=== PATIENT | male | born 1950 | race American Indian/Alaskan Native ===

== ENCOUNTER 2018-12-02 11:21 | Outpatient (CLI) | payer MEDICARE | END 2018-12-02 11:22 | disposition home or self-care (01) | LOC: RAD 11:21 ==

== ENCOUNTER 2018-12-15 07:27 | Outpatient (CLI) | payer MEDICARE | END 2018-12-15 07:28 | disposition home or self-care (01) | LOC: RAD 07:27 ==

== ENCOUNTER 2018-12-22 12:12 | Inpatient (IN) | payer MEDICARE, OTHER ==
[2018-12-22 12:55] LABS: BASO # 0.02 K/mm3 (0.0-2.0); BASO % 0.1 % (0.0-3.0); EOS # 0.1 (0.0-0.7); EOS % 0.7 % (1.5-5.0); HEMOGLOBIN 11.4 g/dL (14.0-18.0); LYMPH # 1.9 (1.2-3.4); LYMPH % 11.1 % (22.0-35.0); MEAN CELL VOLUME 85.6 fl (80.0-105.0); MEAN CORPUSCULAR HEMOGLOBIN 28.9 pg (25.0-35.0); MEAN CORPUSCULAR HGB CONC 33.7 g/dl (31.0-37.0); MEAN PLATELET VOLUME 9.1 fl (7.0-11.0); MONO # 1.8 (0.1-0.6); MONO % 10.8 % (1.0-6.0); RBC 3.95 10^6/uL (3.5-6.1); RED CELL DISTRIBUTION WIDTH 12.5 % (11.5-14.5)
[2018-12-22 13:06] LABS: BLOOD UREA NITROGEN 17 mg/dL (7-21); CALCIUM 9.9 mg/dL (8.4-10.5); GFR NON-AFRICAN AMERICAN 51
[2018-12-22 13:08] LABS: INR 1.27; PARTIAL THROMBOPLASTIN TIME 36.2 Seconds (26.9-38.3); PROTHROMBIN TIME 14.3 SECONDS (9.4-12.5)
[2018-12-22] MEDS ORDERED: Iodixanol 320 MG/ML 200 ML BOTTLE IV ONE (13:22)
[2018-12-22] MEDS ORDERED: Lidocaine PF 2% (5 ml) Inj (For Cardiac Arrhy) ONE (13:22)
[2018-12-22] MEDS ORDERED: Nitroglycerin 50mg in D5W 50 MG/250 ML BOTTLE IV ONE (13:29)
[2018-12-22] MEDS ORDERED: Midazolam 2 MG/2 ML VIAL ONE ×2 (14:15→14:35)
[2018-12-22] MEDS ORDERED: Labetalol 5mg/ml (4ml) ONE (15:00)
[2018-12-22] MEDS ORDERED: Iodixanol 320 MG/ML 100 ML BOTTLE IV ONE ×2 (15:32→15:45)
[2018-12-22] MEDS ORDERED: Oxycodone/Acetaminophen 5/325 mg Tab PO PRN (16:52)
[2018-12-22] MEDS: SITAGLIPTIN PHOS PO SCH (17:32)
[2018-12-22] MEDS: METFORMIN HCL PO SCH (17:32)
[2018-12-22] MEDS: Sodium Chloride 0.45% 1,000 ML IV SCH (18:11)
--- NOTE | 2018-12-22 18:44 | VASCULAR ---
Date of service: 12/22/2018 PROCEDURE: 1. Abdominal aortogram and bilateral lower extremity runoff with left selective views 2. Left popliteal artery drug-eluting balloon angioplasty 3. Left proximal to mid anterior tibial artery angioplasty and drug-eluting stent placement 4. Left tibioperoneal and proximal peroneal artery angioplasty and drug-eluting stent placement HISTORY: Severe peripheral vascular disease. Diabetes. Gangrene left 5th toe. PHYSICIAN(S): Jaskaran Adams M.D. TECHNIQUE: The relative risks and indications of the procedure were explained to the patient and consent obtained. The patient was hydrated prior to the procedure and the appropriate labs drawn. The patient was placed supine on the arteriogram table and the right groin prepped and draped in the usual sterile fashion. Conscious sedation and monitoring were provided throughout the procedure by a nurse. Under ultrasound guidance, the right common femoral artery was punctured with a micropuncture set. A 5 Mauritian sheath was placed. Through the sheath and over guidewire a 5 Mauritian flush catheter was placed in the abdominal aorta at the level of the renal arteries and a PA DSA abdominal and pelvic arteriogram performed. The catheter was pulled down the aortic bifurcation and bilateral oblique DSA pelvic arteriograms performed. Next overlapping bilateral lower extremity DSA arteriograms were obtained from the inguinal ligaments to the ankles. A 6 Mauritian 65 cm sheath was advanced over the bifurcation and placed in the mid left SFA. Heparin and nitroglycerin were given. The stenoses in the left popliteal artery and tibioperoneal trunk were crossed with a 5 Mauritian catheter and angled Glidewire. Exchange is made for 0.014 support wire. The left tibioperoneal trunk and proximal left peroneal artery were dilated with a 3.0 by 100 mm balloon. Eventually a 3.5 x 30 mm drug-eluting stent was placed in the left tibioperoneal trunk and peroneal artery origin. The catheter and guidewire were then directed across the severely diseased left anterior tibial artery. The occlusions in the mid left anterior tibial artery were crossed with various 0.018 and 0.035 guidewires. A 0.014 support wire was placed in the dorsalis pedis artery. The proximal to mid left anterior tibial artery was dilated with a 3.5 x 150 balloon. A focal 3.0 x 22 mm drug-eluting stent was placed in the left anterior tibial artery origin. Next a 6 mm x 120 mm drug-eluting balloon was used in the terminal left SFA and above knee popliteal arteries. No stent was required. Completion angiograms were obtained. Sheath was removed hemostasis obtained with a Perclose device. The patient tolerated the procedure FINDINGS: There are single renal arteries bilaterally which are widely patent and normal in appearance. The nephrograms are symmetric in appearance. The infrarenal abdominal aorta is widely patent without a radiographically significant stenosis. The aortic bifurcation is widely patent. The common and external iliac arteries are normal in appearance without a significant stenosis. The internal iliac arteries are patent bilaterally. Right lower extremity: The right common femoral artery is patent. The right profunda femoral artery is patent. The right superficial femoral artery is patent and continuous without a radiographically significant stenosis. The right popliteal artery is patent with mild smooth disease. There is severe right trifurcation and tibial occlusive disease. The right posterior tibial and peroneal arteries are occluded proximally. There is severe diffuse disease and atretic tearing right anterior tibial artery. Images of the right foot were not obtained Left lower extremity: Left common femoral artery is patent. The left profunda femoral artery is patent. The left superficial femoral artery is patent and continuous without a radiographically significant stenosis. There are eccentric calcified stenoses in the left popliteal artery above the knee. Once again there is severe left trifurcation and tibial occlusive disease. Diffuse disease and mid segment occlusions are noted in the left anterior tibial artery. The left posterior tibial artery occludes proximally. The left peroneal artery is a predominant supply to the foot with disease in the tibioperoneal trunk and proximal left peroneal artery. There is severe left pedal occlusive disease. The left dorsalis pedis artery occludes in the mid foot. The left plantar arch is occluded. There is a small collaterals present IMPRESSION: 1.Successful left popliteal artery drug-eluting balloon angioplasty 2. Successful proximal and mid left anterior tibial artery angioplasty and focal stent placement 3. Successful left tibioperoneal trunk and proximal left peroneal artery angioplasty and focal stent placement 4. Severe left pedal occlusive disease.
[2018-12-22] MEDS: Morphine 2 mg/ml ISec IVP PRN (22:09)
[2018-12-23 07:16] LABS: HEMOGLOBIN 10.1 g/dL (14.0-18.0); MEAN CORPUSCULAR HEMOGLOBIN 28.1 pg (25.0-35.0); MEAN CORPUSCULAR HGB CONC 33.1 g/dl (31.0-37.0); MEAN PLATELET VOLUME 9.3 fl (7.0-11.0); RBC 3.59 10^6/uL (3.5-6.1); RED CELL DISTRIBUTION WIDTH 12.7 % (11.5-14.5); WHITE BLOOD COUNT 15.5 10^3/uL (4.5-11.0)
[2018-12-23 07:34] LABS: BLOOD UREA NITROGEN 16 mg/dL (7-21); CALCIUM 9.1 mg/dL (8.4-10.5); GFR NON-AFRICAN AMERICAN > 60
[2018-12-23] MEDS: Sodium Chloride 0.45% 1,000 ML IV SCH (09:12)
[2018-12-23] MEDS: Insulin Detemir 100 units/ml Vial (Levemir) SC SCH ×2 (09:16→21:46)
[2018-12-23] MEDS: METFORMIN HCL PO SCH (09:41)
[2018-12-23] MEDS: SITAGLIPTIN PHOS PO SCH (09:41)
[2018-12-23] MEDS: Morphine 2 mg/ml ISec IVP PRN ×2 (09:46→21:46)
--- NOTE | 2018-12-23 10:55 | CP.PCM.CON ---
<Evelyn Arenas - Last Filed: 12/23/18 11:08> History of Present Illness - History of Present Illness History of Present Illness: Podiatry Consult Note: Dr. Colmenares 68 year old male patient, with PMHx of DMII and HTN, seen and evaluated at bedside for L necrotic 5th digit. 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 He states that over the past week the toe started to become black, painful, and have malodor. Denies nausea/vomiting/fever/shortness of breath/chest pain. PMHx: as above PSHx: R hallux amp ALL: NKDA Review of Systems - Constitutional Constitutional: As Per HPI Past Patient History - Past Medical History & Family History Past Medical History?: Yes - Past Social History Smoking Status: Never Smoked - CARDIAC Hx Pacemaker: No - PULMONARY Hx Respiratory Disorders: No Hx Asthma: No Hx Bronchitis: No Hx Chronic Obstructive Pulmonary Disease (COPD): No Hx Emphysema: No Hx Lung Cancer: No Hx Pneumonia: No Hx Pulmonary Edema: No Hx Pulmonary Embolism: No Hx Respiratory Aspiration: No Hx Respiratory Tract Infection: No Hx Sleep Apnea: No Hx Tuberculosis: No - NEUROLOGICAL Hx Paralysis: No - HEENT Hx HEENT Problems: No Hx Blind: No Hx Cataracts: No Hx Deafness: No Hx Difficulty Chewing: No Hx Epistaxis: No Hx Glaucoma: No Hx Macular Degeneration: No - RENAL Hx Chronic Kidney Disease: No Hx Kidney Stones: No Hx Neurogenic Bladder: No Hx Pyelonephritis: No Hx Renal (Kidney) Cancer: No Hx Renal Failure: No - ENDOCRINE/METABOLIC Hx Endocrine Disorders: No Hx Adrenal Cancer: No Hx Diabetes Insipidus: No Hx Diabetes Mellitus Type 2: No Hx Hyperthyroidism: No Hx Hypothyroidism: No Hx Systemic Lupus Erythematosus: No - HEMATOLOGICAL/ONCOLOGICAL Hx Blood Transfusions: No - INTEGUMENTARY Hx Dermatological Problems: No Hx Basil Cell: No Hx Foy: No Hx Cellulitis: No Hx Eczema: No Hx Melanoma: No Hx Psoriasis: No Hx Squamous Cell: No - MUSCULOSKELETAL/RHEUMATOLOGICAL Hx Musculoskeletal Disorders: No - GASTROINTESTINAL Hx Gastrointestinal Disorders: No Hx Bowel Surgery: No Hx Clostridium Difficile: No Hx Colitis: No Hx Colostomy: No Hx Crohn's Disease: No Hx Diverticulitis: No Hx Esophageal Varices: No Hx Fatty Liver Disease: No Hx Gall Bladder Disease: No Hx Gastritis: No Hx Gastroesophageal Reflux: No Hx Hemorrhoids: No Hx Ileostomy: No Hx Irritable Bowel: No Hx Liver Failure: No Hx Pancreatitis: No HX Swallowing Problems: No Hx Ulcer: No - GENITOURINARY/GYNECOLOGICAL Hx Genitourinary Disorders: No Hx Bladder Cancer: No Hx Bladder Stone: No Hx Hematuria: No Hx Incontinence: No Hx Prostate Cancer: No Hx Prostate Problems: No Hx Reproductive Disorders: No Hx Sexually Transmitted Disorders: No Hx Urinary Tract Infection: No - PSYCHIATRIC Hx Emotional Abuse: No Hx Physical Abuse: No Hx Substance Use: No - SURGICAL HISTORY Hx Surgeries: Yes - ANESTHESIA Hx Anesthesia Reactions: No Hx Malignant Hyperthermia: No Meds Allergies/Adverse Reactions: Allergies Allergy/AdvReac Type Severity Reaction Status Date / Time No Known Allergies Allergy Verified 12/21/18 08:22 - Medications Medications: Current Medications Ibuprofen (Motrin Tab) 400 mg PO TID PRN PRN Reason: Pain, moderate (4-7) Insulin Detemir (Levemir) 40 unit SC Q12 [facility] Last Admin: 12/23/18 09:16 Dose: 40 units Losartan Potassium (Cozaar) 25 mg PO DAILY [facility] Last Admin: 12/23/18 09:12 Dose: 25 mg Morphine Sulfate (Morphine) 2 mg IVP Q4H PRN PRN Reason: Pain, moderate (4-7) Last Admin: 12/23/18 09:46 Dose: 2 mg Sitagliptin Phos/Metformin Hcl [ Janumet 50-1,000 Mg Tablet] 1 Ea (Home Med) 1 each PO BID [facility] Last Admin: 12/23/18 09:41 Dose: Not Given Ondansetron HCl (Zofran Inj) 4 mg IVP ONCE PRN PRN Reason: Nausea/Vomiting Oxycodone/Acetaminophen (Percocet 5/325 Mg Tab) 1 tab PO Q4H PRN PRN Reason: Pain, moderate (4-7) Stop: 12/25/18 16:53 Physical Exam - Constitutional Appears: Non-toxic, No Acute Distress - Head Exam Head Exam: ATRAUMATIC, NORMOCEPHALIC - Extremities Exam Additional comments: Vascular: DP/PT non-palpable, CFT > 3 seconds, TG warm to cool, mild edema appreciated to lateral aspect of R 5th digit Ortho: Tenderness with palpation of R 5th digit, L hallux amp Neuro: Gross and protective sensation diminished Derm: Necrotic R 5th digit with + malodor, + purulence in 4th interspace, + serous drainage. - Neurological Exam Neurological exam: Alert, Normal Gait, Oriented x3 - Psychiatric Exam Psychiatric exam: Normal Affect, Normal Mood Results - Vital Signs Recent Vital Signs: Last Vital Signs Temp 98.7 F 12/23/18 06:00 Pulse 99 H 12/23/18 09:12 Resp 20 12/23/18 06:00 BP 132/65 12/23/18 09:12 Pulse Ox 99 12/23/18 06:00 - Labs Result Diagrams: 12/23/18 07:00 12/23/18 07:00 Labs: Laboratory Results - last 24 hr 12/22/18 12/22/18 12/22/18 12:30 12:30 12:30 WBC 17.0 H RBC 3.95 Hgb 11.4 L Hct 33.8 L MCV 85.6 MCH 28.9 MCHC 33.7 RDW 12.5 Plt Count 338 MPV 9.1 Neut % (Auto) 77.3 H Lymph % (Auto) 11.1 L [place] % (Auto) 10.8 H Eos % (Auto) 0.7 L Baso % (Auto) 0.1 Lymph # (Auto) 1.9 [place] # (Auto) 1.8 H Eos # (Auto) 0.1 Baso # (Auto) 0.02 Absolute Neuts (auto) 13.10 H PT 14.3 H INR 1.27 APTT 36.2 Sodium 138 Potassium 3.8 Chloride 100 Carbon Dioxide 28 Anion Gap 14 BUN 17 Creatinine 1.4 Est GFR ( Amer) > 60 Est GFR (Non-Af Amer) 51 Random Glucose 134 H Calcium 9.9 12/23/18 12/23/18 07:00 07:00 WBC 15.5 H RBC 3.59 Hgb 10.1 L Hct 30.5 L MCV 85.0 MCH 28.1 MCHC 33.1 RDW 12.7 Plt Count 323 MPV 9.3 Neut % (Auto) Lymph % (Auto) [place] % (Auto) Eos % (Auto) Baso % (Auto) Lymph # (Auto) [place] # (Auto) Eos # (Auto) Baso # (Auto) Absolute Neuts (auto) PT INR APTT Sodium 135 Potassium 4.0 Chloride 97 L Carbon Dioxide 29 Anion Gap 13 BUN 16 Creatinine 1.2 Est GFR ( Amer) > 60 Est GFR (Non-Af Amer) > 60 Random Glucose 109 Calcium 9.1 Assessment & Plan - Assessment and Plan (Free Text) Assessment: 68 year old male patient, with PMHx of DMII and HTN, seen and evaluated at bedside for L necrotic 5th digit. Plan: Patient seen and evaluated with attending Dr. Colmenares Afebrile, WBC 15.5 L foot x-ray ordered; pending L MRI ordered; pending Patient will need surgical intervention at this time Plan for L 5th digit amputation Will continue to follow Thank you for the consult - Date & Time Date: 12/23/18 Time: 10:55 <Mary Colmenares - Last Filed: 12/26/18 19:36> Meds - Medications Medications: Current Medications Ceftaroline Fosamil 600 mg/ (Sodium Chloride) 100 mls @ 100 mls/hr IVPB Q12 [facility]; Protocol Stop: 12/29/18 10:01 Last Admin: 12/26/18 09:44 Dose: 100 mls/hr Ibuprofen (Motrin Tab) 400 mg PO TID PRN PRN Reason: Pain, moderate (4-7) Insulin Detemir (Levemir) 40 unit SC Q12 [facility] Last Admin: 12/26/18 09:45 Dose: 40 units Insulin Human Regular (Humulin R Low) 0 units SC ACHS [facility]; Protocol Last Admin: 12/26/18 17:47 Dose: 1 unit Losartan Potassium (Cozaar) 25 mg PO DAILY [facility] Last Admin: 12/26/18 09:44 Dose: 25 mg Ondansetron HCl (Zofran Inj) 4 mg IVP ONCE PRN PRN Reason: Nausea/Vomiting Polyethylene Glycol (Miralax) 17 gm PO BID [facility] Last Admin: 12/26/18 17:47 Dose: 17 gm Sitagliptin Phosphate (Januvia) 50 mg PO DAILY [facility] Last Admin: 12/26/18 09:43 Dose: 50 mg Results - Vital Signs Recent Vital Signs: Last Vital Signs Temp 98.0 F 12/26/18 18:00 Pulse 81 12/26/18 18:00 Resp 20 12/26/18 18:00 BP 125/64 12/26/18 18:00 Pulse Ox 99 12/26/18 18:00 - Labs Result Diagrams: 12/25/18 05:30 12/25/18 05:30 Labs: Laboratory Results - last 24 hr 12/25/18 12/25/18 12/26/18 05:30 21:17 07:45 POC Glucose (mg/dL) 174 H 129 H Hemoglobin A1c 7.6 H 12/26/18 12/26/18 11:36 16:41 POC Glucose (mg/dL) 250 H 179 H Hemoglobin A1c Attending/Attestation - Attestation I have personally seen and examined this patient.: Yes I have fully participated in the care of the patient.: Yes I have reviewed all pertinent clinical information: Yes
--- NOTE | 2018-12-23 11:25 | CP.PCM.PCO ---
Physician Communication Note - Physician Communication Note Physician Communication Note: OR Mon.
[2018-12-23] MEDS: Insulin Reg-LOW-Coverage SC SCH ×3 (12:29→21:42)
[2018-12-23] MEDS ORDERED: Ceftaroline 600 MG in Sodium Chloride 0.9% 100 ML IVPB STA (15:25)
--- NOTE | 2018-12-23 15:32 | CP.PCM.CON ---
<Kalyan Hoang - Last Filed: 12/23/18 15:27> History of Present Illness - History of Present Illness History of Present Illness: Kalyan Hoang D.O. PGY-3, Internal Medicine Resident, Infectious Disease Consultation Note 68 year old male with a PMH of HTN, IDDM with neuropathy, and PVD who presented originally for procedural intervention of his PVD, hospital course complicated by wet gangrene. Infectious disease consultation was requested for the aforementioned. Patient was seen and examined at bedside. Patient admits that he has not been taking good care of himself, particularly with his diet, but that he's ready to make a change now. Patient states that he began to get worried because his left foot had "that smell" and started looking black and he's had right big toe and partial left middle toe amputations before for infections. Patient states that at this time he has pulsating pain in the area. Denies fever, chills, nausea, vomiting, diarrhea, headache, or other complaints at this time. Review of Systems - Review of Systems All systems: reviewed and no additional remarkable complaints except (as per HPI) Past Patient History - Past Medical History & Family History Past Medical History?: Yes - Past Social History Smoking Status: Never Smoked - CARDIAC Hx Pacemaker: No - PULMONARY Hx Respiratory Disorders: No Hx Asthma: No Hx Bronchitis: No Hx Chronic Obstructive Pulmonary Disease (COPD): No Hx Emphysema: No Hx Lung Cancer: No Hx Pneumonia: No Hx Pulmonary Edema: No Hx Pulmonary Embolism: No Hx Respiratory Aspiration: No Hx Respiratory Tract Infection: No Hx Sleep Apnea: No Hx Tuberculosis: No - NEUROLOGICAL Hx Paralysis: No - HEENT Hx HEENT Problems: No Hx Blind: No Hx Cataracts: No Hx Deafness: No Hx Difficulty Chewing: No Hx Epistaxis: No Hx Glaucoma: No Hx Macular Degeneration: No - RENAL Hx Chronic Kidney Disease: No Hx Kidney Stones: No Hx Neurogenic Bladder: No Hx Pyelonephritis: No Hx Renal (Kidney) Cancer: No Hx Renal Failure: No - ENDOCRINE/METABOLIC Hx Endocrine Disorders: No Hx Adrenal Cancer: No Hx Diabetes Insipidus: No Hx Diabetes Mellitus Type 2: No Hx Hyperthyroidism: No Hx Hypothyroidism: No Hx Systemic Lupus Erythematosus: No - HEMATOLOGICAL/ONCOLOGICAL Hx Blood Transfusions: No - INTEGUMENTARY Hx Dermatological Problems: No Hx Basil Cell: No Hx Foy: No Hx Cellulitis: No Hx Eczema: No Hx Melanoma: No Hx Psoriasis: No Hx Squamous Cell: No - MUSCULOSKELETAL/RHEUMATOLOGICAL Hx Musculoskeletal Disorders: No - GASTROINTESTINAL Hx Gastrointestinal Disorders: No Hx Bowel Surgery: No Hx Clostridium Difficile: No Hx Colitis: No Hx Colostomy: No Hx Crohn's Disease: No Hx Diverticulitis: No Hx Esophageal Varices: No Hx Fatty Liver Disease: No Hx Gall Bladder Disease: No Hx Gastritis: No Hx Gastroesophageal Reflux: No Hx Hemorrhoids: No Hx Ileostomy: No Hx Irritable Bowel: No Hx Liver Failure: No Hx Pancreatitis: No HX Swallowing Problems: No Hx Ulcer: No - GENITOURINARY/GYNECOLOGICAL Hx Genitourinary Disorders: No Hx Bladder Cancer: No Hx Bladder Stone: No Hx Hematuria: No Hx Incontinence: No Hx Prostate Cancer: No Hx Prostate Problems: No Hx Reproductive Disorders: No Hx Sexually Transmitted Disorders: No Hx Urinary Tract Infection: No - PSYCHIATRIC Hx Emotional Abuse: No Hx Physical Abuse: No Hx Substance Use: No - SURGICAL HISTORY Hx Surgeries: Yes - ANESTHESIA Hx Anesthesia Reactions: No Hx Malignant Hyperthermia: No Meds Allergies/Adverse Reactions: Allergies Allergy/AdvReac Type Severity Reaction Status Date / Time No Known Allergies Allergy Verified 12/21/18 08:22 - Medications Medications: Current Medications Ceftaroline Fosamil 600 mg/ (Sodium Chloride) 100 mls @ 100 mls/hr IVPB [facility]; Protocol Stop: 12/23/18 16:24 Ceftaroline Fosamil 600 mg/ (Sodium Chloride) 100 mls @ 100 mls/hr IVPB Q12 [facility]; Protocol Stop: 12/29/18 10:01 Ibuprofen (Motrin Tab) 400 mg PO TID PRN PRN Reason: Pain, moderate (4-7) Insulin Detemir (Levemir) 40 unit SC Q12 [facility] Last Admin: 12/23/18 09:16 Dose: 40 units Insulin Human Regular (Humulin R Low) 0 units SC ACHS [facility]; Protocol Last Admin: 12/23/18 12:29 Dose: 1 unit Losartan Potassium (Cozaar) 25 mg PO DAILY [facility] Last Admin: 12/23/18 09:12 Dose: 25 mg Morphine Sulfate (Morphine) 2 mg IVP Q4H PRN PRN Reason: Pain, moderate (4-7) Last Admin: 12/23/18 09:46 Dose: 2 mg Ondansetron HCl (Zofran Inj) 4 mg IVP ONCE PRN PRN Reason: Nausea/Vomiting Oxycodone/Acetaminophen (Percocet 5/325 Mg Tab) 1 tab PO Q4H PRN PRN Reason: Pain, moderate (4-7) Stop: 12/25/18 16:53 Sitagliptin Phosphate (Januvia) 50 mg PO DAILY [facility] Physical Exam - Constitutional Appears: No Acute Distress - Head Exam Head Exam: ATRAUMATIC, NORMOCEPHALIC - Eye Exam Eye Exam: EOMI. absent: Scleral icterus - ENT Exam ENT Exam: Mucous Membranes Moist, Normal Oropharynx - Neck Exam Neck exam: Positive for: Normal Inspection - Respiratory Exam Respiratory Exam: Clear to Auscultation Bilateral. absent: Rales, Rhonchi, Wheezes - Cardiovascular Exam Cardiovascular Exam: RRR, +S1, +S2. absent: Gallop, Rubs - GI/Abdominal Exam GI & Abdominal Exam: Normal Bowel Sounds, Soft. absent: Distended, Tenderness - Extremities Exam Additional comments: left foot is wrapped extensively, malodorous, right healed hallux amputation noted, as well as healed partial amputation of left middle toe, pulses are not well palpable, toes are warm - Neurological Exam Neurological exam: Alert, Oriented x3 - Psychiatric Exam Psychiatric exam: Normal Affect, Normal Mood - Skin Skin Exam: Dry, Warm Results - Vital Signs Recent Vital Signs: Last Vital Signs Temp 98.2 F 12/23/18 12:00 Pulse 93 H 12/23/18 14:00 Resp 18 12/23/18 12:00 BP 135/79 12/23/18 12:00 Pulse Ox 99 12/23/18 06:00 - Labs Result Diagrams: 12/23/18 07:00 12/23/18 07:00 Labs: Laboratory Results - last 24 hr 12/23/18 12/23/18 07:00 07:00 WBC 15.5 H RBC 3.59 Hgb 10.1 L Hct 30.5 L MCV 85.0 MCH 28.1 MCHC 33.1 RDW 12.7 Plt Count 323 MPV 9.3 Sodium 135 Potassium 4.0 Chloride 97 L Carbon Dioxide 29 Anion Gap 13 BUN 16 Creatinine 1.2 Est GFR ( Amer) > 60 Est GFR (Non-Af Amer) > 60 Random Glucose 109 Calcium 9.1 Assessment & Plan - Assessment and Plan (Free Text) Assessment: 68 year old male with a PMH of HTN, IDDM with neuropathy, and PVD who presented originally for procedural intervention of his PVD, hospital course complicated by wet gangrene. Infectious disease consultation was requested for the aforementioned. Plan: Sepsis (2/4 tachycardic with leukocytosis) with left 5th toe infection Uncontrolled IDDM with neuropathy and previous toe amputations HTN PVD s/p IR intervention Possible osteomyelitis, CRP and ESR ordered MRI of the left foot ordered Podiatry following, recs reviewed and appreciated Will start teflaro with one dose STAT and continue 600mg IV Q12h BCxs, UA and UCx ordered STAT Discussed lifestyle modifications for optimal glycemic control We will follow with you Patient was seen and examined and case discussed at length with attending physician Thank you for the pleasure of participating in the care of this interesting patient - Date & Time Date: 12/23/18 Time: 15:33 <Mino John - Last Filed: 12/23/18 20:48> Meds - Medications Medications: Current Medications Ceftaroline Fosamil 600 mg/ (Sodium Chloride) 100 mls @ 100 mls/hr IVPB Q12 [facility]; Protocol Stop: 12/29/18 10:01 Ibuprofen (Motrin Tab) 400 mg PO TID PRN PRN Reason: Pain, moderate (4-7) Insulin Detemir (Levemir) 40 unit SC Q12 [facility] Last Admin: 12/23/18 09:16 Dose: 40 units Insulin Human Regular (Humulin R Low) 0 units SC ACHS [facility]; Protocol Last Admin: 12/23/18 17:00 Dose: 3 unit Losartan Potassium (Cozaar) 25 mg PO DAILY [facility] Last Admin: 12/23/18 09:12 Dose: 25 mg Morphine Sulfate (Morphine) 2 mg IVP Q4H PRN PRN Reason: Pain, moderate (4-7) Last Admin: 12/23/18 09:46 Dose: 2 mg Ondansetron HCl (Zofran Inj) 4 mg IVP ONCE PRN PRN Reason: Nausea/Vomiting Oxycodone/Acetaminophen (Percocet 5/325 Mg Tab) 1 tab PO Q4H PRN PRN Reason: Pain, moderate (4-7) Stop: 12/25/18 16:53 Polyethylene Glycol (Miralax) 17 gm PO BID [facility] Last Admin: 12/23/18 19:06 Dose: 17 gm Sitagliptin Phosphate (Januvia) 50 mg PO DAILY [facility] Results - Vital Signs Recent Vital Signs: Last Vital Signs Temp 97.3 F L 12/23/18 18:00 Pulse 57 L 12/23/18 18:00 Resp 18 12/23/18 18:00 BP 155/79 H 12/23/18 18:00 Pulse Ox 99 12/23/18 06:00 - Labs Result Diagrams: 12/23/18 07:00 12/23/18 07:00 Labs: Laboratory Results - last 24 hr 12/23/18 12/23/18 12/23/18 07:00 07:00 18:10 WBC 15.5 H RBC 3.59 Hgb 10.1 L Hct 30.5 L MCV 85.0 MCH 28.1 MCHC 33.1 RDW 12.7 Plt Count 323 MPV 9.3 Sodium 135 Potassium 4.0 Chloride 97 L Carbon Dioxide 29 Anion Gap 13 BUN 16 Creatinine 1.2 Est GFR ( Amer) > 60 Est GFR (Non-Af Amer) > 60 Random Glucose 109 Calcium 9.1 Urine Color yellow Urine Appearance Clear Urine pH 6.0 Ur Specific [place] 1.025 Urine Protein Trace H Urine Glucose (UA) 250 H Urine Ketones Negative Urine Blood Trace-intact H Urine Nitrate Negative Urine Bilirubin Negative Urine Urobilinogen 0.2 Ur Leukocyte Esterase Negative Urine RBC 5 - 10 H Urine WBC 5 - 10 H Ur Epithelial Cells 1 - 3 Attending/Attestation - Attestation I have personally seen and examined this patient.: Yes I have fully participated in the care of the patient.: Yes I have reviewed all pertinent clinical information: Yes
[2018-12-23] MEDS: POLYETHYLENE GLYCOL 3350 17 GM/Dose PACKET PO SCH ×2 (15:49→19:06)
[2018-12-23 17:15] VITALS: BMI 34.1
[2018-12-23] MEDS ORDERED: Pneumococcal 23-Valent Vaccine IM ONE (17:15)
[2018-12-23] MEDS ORDERED: Influenza Vaccine 60 mcg/0.5 mL SYR (4YR UP) IM ONE (17:15)
[2018-12-23 18:33] LABS: URINE BILIRUBIN NEGATIVE (NEGATIVE); URINE BLOOD TRACE-INTACT (NEGATIVE); URINE GLUCOSE (UA) 250 mg/dL (NEGATIVE); URINE LEUKOCYTE ESTERASE NEGATIVE Leu/uL (NEGATIVE); URINE PROTEIN TRACE mg/dL (<30 mg/dL); URINE UROBILINOGEN 0.2 E.U./dL (<1 E.U./dL)
[2018-12-23 18:35] LABS: URINE APPEARANCE CLEAR (CLEAR)
[2018-12-23] MEDS ORDERED: Ceftaroline 600 MG in Sodium Chloride 0.9% 100 ML IVPB SCH (22:00)
[2018-12-24] MEDS: Morphine 2 mg/ml ISec IVP PRN ×4 (06:41→21:55)
[2018-12-24 07:03] LABS: BASO # 0.03 K/mm3 (0.0-2.0); BASO % 0.2 % (0.0-3.0); EOS # 0.2 (0.0-0.7); EOS % 1.2 % (1.5-5.0); HEMOGLOBIN 9.7 g/dL (14.0-18.0); LYMPH # 2.1 (1.2-3.4); LYMPH % 13.5 % (22.0-35.0); MEAN CELL VOLUME 84.7 fl (80.0-105.0); MONO # 1.6 (0.1-0.6); MONO % 10.7 % (1.0-6.0); RBC 3.47 10^6/uL (3.5-6.1); RED CELL DISTRIBUTION WIDTH 12.5 % (11.5-14.5); WHITE BLOOD COUNT 15.3 10^3/uL (4.5-11.0)
[2018-12-24 07:13] LABS: ALB/GLOB RATIO 0.9 (1.1-1.8); ALBUMIN 3.7 g/dL (3.0-4.8); ALT/SGPT 14 U/L (7-56); AST/SGOT 36 U/L (17-59); BLOOD UREA NITROGEN 16 mg/dL (7-21); CALCIUM 9.1 mg/dL (8.4-10.5); GFR NON-AFRICAN AMERICAN > 60
--- NOTE | 2018-12-24 09:27 | CP.PCM.PN ---
<Evelyn Arenas - Last Filed: 12/24/18 11:56> Subjective - Date & Time of Evaluation Date of Evaluation: 12/24/18 Time of Evaluation: 09:22 - Subjective Subjective: Podiatry Consult Note: Dr. Yanes Patient seen and evaluated this AM with Dr. Yanes. Patient resting comfortably and in NAD. Reports malodor coming from gangrenous 5th digit. Denies nausea/vomiting/fever/shortness of breath/chest pain. Objective - Vital Signs/Intake and Output Vital Signs (last 24 hours): Temp Pulse Resp BP Pulse Ox 99.4 F 90 20 139/80 98 12/24/18 08:13 12/24/18 08:13 12/24/18 08:13 12/24/18 08:13 12/24/18 08:13 Intake and Output: 12/24/18 12/24/18 06:59 18:59 Intake Total 960 Output Total 1600 Balance -640 - Medications Medications: Current Medications Ceftaroline Fosamil 600 mg/ (Sodium Chloride) 100 mls @ 100 mls/hr IVPB Q12 [facility]; Protocol Stop: 12/29/18 10:01 Ibuprofen (Motrin Tab) 400 mg PO TID PRN PRN Reason: Pain, moderate (4-7) Insulin Detemir (Levemir) 40 unit SC Q12 [facility] Last Admin: 12/23/18 21:46 Dose: 40 units Insulin Human Regular (Humulin R Low) 0 units SC ACHS [facility]; Protocol Last Admin: 12/23/18 21:42 Dose: Not Given Losartan Potassium (Cozaar) 25 mg PO DAILY [facility] Last Admin: 12/23/18 09:12 Dose: 25 mg Morphine Sulfate (Morphine) 2 mg IVP Q4H PRN PRN Reason: Pain, moderate (4-7) Last Admin: 12/24/18 06:41 Dose: 2 mg Ondansetron HCl (Zofran Inj) 4 mg IVP ONCE PRN PRN Reason: Nausea/Vomiting Oxycodone/Acetaminophen (Percocet 5/325 Mg Tab) 1 tab PO Q4H PRN PRN Reason: Pain, moderate (4-7) Stop: 12/25/18 16:53 Polyethylene Glycol (Miralax) 17 gm PO BID [facility] Last Admin: 12/23/18 19:06 Dose: 17 gm Sitagliptin Phosphate (Januvia) 50 mg PO DAILY [facility] - Labs Labs: 12/24/18 06:00 12/24/18 06:00 PT 14.3 SECONDS (9.4-12.5) H 12/22/18 12:30 INR 1.27 12/22/18 12:30 APTT 36.2 Seconds (26.9-38.3) 12/22/18 12:30 - Constitutional Appears: Non-toxic, No Acute Distress - Head Exam Head Exam: ATRAUMATIC, NORMOCEPHALIC - Extremities Exam Additional comments: Vascular: DP/PT non-palpable, CFT > 3 seconds, TG warm to cool, mild edema appreciated to lateral aspect of R 5th digit Ortho: Tenderness with palpation of R 5th digit, L hallux amp, MMT 5/5 Neuro: Gross and protective sensation diminished Derm: Necrotic R 5th digit with + malodor, + purulence in 4th interspace, + serous drainage. - Neurological Exam Neurological Exam: Alert, Awake - Psychiatric Exam Psychiatric exam: Normal Affect, Normal Mood Assessment and Plan - Assessment and Plan (Free Text) Assessment: 68M with gangrenous L 5th digit. Plan: Patient seen and evaluated with attending Dr. Yanes Afebrile, WBC 15.3 L foot x-ray ordered; pending L MRI ordered; pending - MRI completion with report is critical for surgical planning on Thursday Wound culture taken; pending Plan for L 5th digit amputation on Thursday at 7:[address] Colmenares Please medically optimize patient and provide medical clearance Will continue to follow <Rohan Yanes - Last Filed: 12/24/18 18:27> Objective - Vital Signs/Intake and Output Vital Signs (last 24 hours): Temp Pulse Resp BP Pulse Ox 99.4 F 90 20 139/80 98 12/24/18 08:13 12/24/18 09:36 12/24/18 08:13 12/24/18 09:36 12/24/18 08:13 Intake and Output: 12/24/18 12/24/18 06:59 18:59 Intake Total 960 Output Total 1600 Balance -640 - Medications Medications: Current Medications Ceftaroline Fosamil 600 mg/ (Sodium Chloride) 100 mls @ 100 mls/hr IVPB Q12 [facility]; Protocol Stop: 12/29/18 10:01 Last Admin: 12/24/18 09:35 Dose: 100 mls/hr Ibuprofen (Motrin Tab) 400 mg PO TID PRN PRN Reason: Pain, moderate (4-7) Insulin Detemir (Levemir) 40 unit SC Q12 [facility] Last Admin: 12/24/18 09:39 Dose: 40 units Insulin Human Regular (Humulin R Low) 0 units SC ACHS [facility]; Protocol Last Admin: 12/24/18 16:36 Dose: 1 unit Losartan Potassium (Cozaar) 25 mg PO DAILY [facility] Last Admin: 12/24/18 09:36 Dose: 25 mg Morphine Sulfate (Morphine) 2 mg IVP Q4H PRN PRN Reason: Pain, moderate (4-7) Last Admin: 12/24/18 16:36 Dose: 2 mg Ondansetron HCl (Zofran Inj) 4 mg IVP ONCE PRN PRN Reason: Nausea/Vomiting Oxycodone/Acetaminophen (Percocet 5/325 Mg Tab) 1 tab PO Q4H PRN PRN Reason: Pain, moderate (4-7) Stop: 12/25/18 16:53 Polyethylene Glycol (Miralax) 17 gm PO BID [facility] Last Admin: 12/24/18 17:34 Dose: 17 gm Sitagliptin Phosphate (Januvia) 50 mg PO DAILY [facility] Last Admin: 12/24/18 09:36 Dose: 50 mg - Labs Labs: 12/24/18 06:00 12/24/18 06:00 PT 14.3 SECONDS (9.4-12.5) H 12/22/18 12:30 INR 1.27 12/22/18 12:30 APTT 36.2 Seconds (26.9-38.3) 12/22/18 12:30 Attending/Attestation - Attestation I have personally seen and examined this patient.: Yes I have fully participated in the care of the patient.: Yes I have reviewed all pertinent clinical information, including history, physical exam and plan: Yes
[2018-12-24] MEDS: Ceftaroline 600 MG in Sodium Chloride 0.9% 100 ML IVPB SCH ×2 (09:35→21:50)
[2018-12-24] MEDS: Insulin Reg-LOW-Coverage SC SCH ×4 (09:37→21:29)
[2018-12-24] MEDS: Insulin Detemir 100 units/ml Vial (Levemir) SC SCH ×2 (09:39→21:30)
[2018-12-24] MEDS: POLYETHYLENE GLYCOL 3350 17 GM/Dose PACKET PO SCH ×2 (09:39→17:34)
--- NOTE | 2018-12-24 11:21 | CP.PCM.PN ---
<Kalyan Hoang - Last Filed: 12/24/18 11:17> Subjective - Date & Time of Evaluation Date of Evaluation: 12/24/18 Time of Evaluation: 09:35 - Subjective Subjective: Kalyan Hoang D.O. PGY-3, Internal Medicine Resident, Infectious Disease Progress Note 68 year old male with a PMH of HTN, IDDM with neuropathy, and PVD who presented originally for procedural intervention of his PVD, hospital course complicated by wet gangrene. Infectious disease consultation was requested for the aforementioned. Patient was seen and examined at bedside. Clinically the same. Still having malodorous output from left 5th toe. Plan for surgery on thursday. Objective - Vital Signs/Intake and Output Vital Signs (last 24 hours): Temp Pulse Resp BP Pulse Ox 99.4 F 90 20 139/80 98 12/24/18 08:13 12/24/18 09:36 12/24/18 08:13 12/24/18 09:36 12/24/18 08:13 Intake and Output: 12/24/18 12/24/18 06:59 18:59 Intake Total 960 Output Total 1600 Balance -640 - Medications Medications: Current Medications Ceftaroline Fosamil 600 mg/ (Sodium Chloride) 100 mls @ 100 mls/hr IVPB Q12 [facility]; Protocol Stop: 12/29/18 10:01 Last Admin: 12/24/18 09:35 Dose: 100 mls/hr Ibuprofen (Motrin Tab) 400 mg PO TID PRN PRN Reason: Pain, moderate (4-7) Insulin Detemir (Levemir) 40 unit SC Q12 [facility] Last Admin: 12/24/18 09:39 Dose: 40 units Insulin Human Regular (Humulin R Low) 0 units SC ACHS [facility]; Protocol Last Admin: 12/24/18 09:37 Dose: Not Given Losartan Potassium (Cozaar) 25 mg PO DAILY [facility] Last Admin: 12/24/18 09:36 Dose: 25 mg Morphine Sulfate (Morphine) 2 mg IVP Q4H PRN PRN Reason: Pain, moderate (4-7) Last Admin: 12/24/18 06:41 Dose: 2 mg Ondansetron HCl (Zofran Inj) 4 mg IVP ONCE PRN PRN Reason: Nausea/Vomiting Oxycodone/Acetaminophen (Percocet 5/325 Mg Tab) 1 tab PO Q4H PRN PRN Reason: Pain, moderate (4-7) Stop: 12/25/18 16:53 Polyethylene Glycol (Miralax) 17 gm PO BID [facility] Last Admin: 12/24/18 09:39 Dose: 17 gm Sitagliptin Phosphate (Januvia) 50 mg PO DAILY [facility] Last Admin: 12/24/18 09:36 Dose: 50 mg - Labs Labs: 12/24/18 06:00 12/24/18 06:00 PT 14.3 SECONDS (9.4-12.5) H 12/22/18 12:30 INR 1.27 12/22/18 12:30 APTT 36.2 Seconds (26.9-38.3) 12/22/18 12:30 - Constitutional Appears: No Acute Distress - Head Exam Head Exam: ATRAUMATIC, NORMOCEPHALIC - Eye Exam Eye Exam: EOMI. absent: Scleral icterus - ENT Exam ENT Exam: Mucous Membranes Moist, Normal Oropharynx - Neck Exam Neck exam: Positive for: Normal Inspection - Respiratory Exam Respiratory Exam: Clear to Auscultation Bilateral. absent: Rales, Rhonchi, Wheezes - Cardiovascular Exam Cardiovascular Exam: RRR, +S1, +S2. absent: Gallop, Rubs - GI/Abdominal Exam GI & Abdominal Exam: Normal Bowel Sounds, Soft. absent: Distended, Tenderness - Extremities Exam Additional comments: left foot is wrapped extensively, malodorous with serosangenous output - Neurological Exam Neurological exam: Alert, Oriented x3 - Psychiatric Exam Psychiatric exam: Normal Affect, Normal Mood - Skin Skin Exam: Dry, Warm Assessment and Plan - Assessment and Plan (Free Text) Assessment: 68 year old male with a PMH of HTN, IDDM with neuropathy, and PVD who presented originally for procedural intervention of his PVD, hospital course complicated by wet gangrene. Infectious disease consultation was requested for the aforementioned. Plan: Sepsis from left 5th toe infection, possible osteomyelitis ?Wet gangrene Uncontrolled IDDM with neuropathy and previous toe amputations HTN PVD s/p IR intervention ESR very elevated at 118 MRI foot pending for today Continue teflaro 600mg IV Q12h day 2 BCxs, UCx pending UA doesn't appear infectious Podiatry following, recs reviewed and appreciated We will follow with you Patient was seen and examined and case discussed at length with attending physician Thank you for the pleasure of participating in the care of this interesting patient <JohnyMino bautista - Last Filed: 12/24/18 13:20> Objective - Vital Signs/Intake and Output Vital Signs (last 24 hours): Temp Pulse Resp BP Pulse Ox 99.4 F 90 20 139/80 98 12/24/18 08:13 12/24/18 09:36 12/24/18 08:13 12/24/18 09:36 12/24/18 08:13 Intake and Output: 12/24/18 12/24/18 06:59 18:59 Intake Total 960 Output Total 1600 Balance -640 - Medications Medications: Current Medications Ceftaroline Fosamil 600 mg/ (Sodium Chloride) 100 mls @ 100 mls/hr IVPB Q12 [facility]; Protocol Stop: 12/29/18 10:01 Last Admin: 12/24/18 09:35 Dose: 100 mls/hr Ibuprofen (Motrin Tab) 400 mg PO TID PRN PRN Reason: Pain, moderate (4-7) Insulin Detemir (Levemir) 40 unit SC Q12 [facility] Last Admin: 12/24/18 09:39 Dose: 40 units Insulin Human Regular (Humulin R Low) 0 units SC ACHS [facility]; Protocol Last Admin: 12/24/18 11:36 Dose: Not Given Losartan Potassium (Cozaar) 25 mg PO DAILY [facility] Last Admin: 12/24/18 09:36 Dose: 25 mg Morphine Sulfate (Morphine) 2 mg IVP Q4H PRN PRN Reason: Pain, moderate (4-7) Last Admin: 12/24/18 11:43 Dose: 2 mg Ondansetron HCl (Zofran Inj) 4 mg IVP ONCE PRN PRN Reason: Nausea/Vomiting Oxycodone/Acetaminophen (Percocet 5/325 Mg Tab) 1 tab PO Q4H PRN PRN Reason: Pain, moderate (4-7) Stop: 12/25/18 16:53 Polyethylene Glycol (Miralax) 17 gm PO BID [facility] Last Admin: 12/24/18 09:39 Dose: 17 gm Sitagliptin Phosphate (Januvia) 50 mg PO DAILY [facility] Last Admin: 12/24/18 09:36 Dose: 50 mg - Labs Labs: 12/24/18 06:00 12/24/18 06:00 PT 14.3 SECONDS (9.4-12.5) H 12/22/18 12:30 INR 1.27 12/22/18 12:30 APTT 36.2 Seconds (26.9-38.3) 12/22/18 12:30 Attending/Attestation - Attestation I have personally seen and examined this patient.: Yes I have fully participated in the care of the patient.: Yes I have reviewed all pertinent clinical information, including history, physical exam and plan: Yes
--- NOTE | 2018-12-24 15:50 | RAD ---
Date of service: 12/24/2018 PROCEDURE: Left Foot Radiographs. HISTORY: necrotic 5th digit COMPARISON: None. FINDINGS: BONES: No radiographic manifestations of osteomyelitis. Status post amputation distal phalanx 1st digit. Plantar and Achilles Tendon insertion calcaneal spurs. No fractures identified. JOINTS: Normal. SOFT TISSUES: Air within soft tissues at the level of the 5th metatarsal highly suspicious for acute infectious process. OTHER FINDINGS: None. IMPRESSION: Air within soft tissues 5th digit which by history is necrotic. Although radiographic manifestations of osteomyelitis are not apparent, based on the overall appearance this should be considered. Follow-up therefore is advised.
--- NOTE | 2018-12-24 17:31 | RAD ---
Date of service: 12/24/2018 HISTORY: going to OR COMPARISON: None FINDINGS: LUNGS: No active pulmonary disease. PLEURA: No significant pleural effusion identified, no pneumothorax apparent. CARDIOVASCULAR: No atherosclerotic calcification present Normal. OSSEOUS STRUCTURES: No significant abnormalities. VISUALIZED UPPER ABDOMEN: Normal. OTHER FINDINGS: None. IMPRESSION: No active disease.
--- NOTE | 2018-12-24 18:43 | CARD ---
APPROVED REPORT Date of service: 12/24/2018 EKG Measurement Heart [id number] <Conclusion> Normal sinus rhythm Normal ECG
--- NOTE | 2018-12-25 02:19 | HP ---
DATE OF EXAM: 12/24/2018 The patient is a 68-year-old male. CHIEF COMPLAINT: Foot pain, left foot little toe pain. HISTORY OF PRESENT ILLNESS: Mr. Cosme Long is a 68-year-old male with past medical history of hypertension, insulin-dependent diabetes mellitus, neuropathy, PVD, came for procedural intervention of his PVD. Hospital course complicated by wet gangrene, Infectious Disease, Dr. John's consult was called. The patient is seen by Dr. Jaskaran Adams also and admitting counselor, has to go for surgery. No fever. No chills. The patient admits that he has not been taking good care of himself, particularly with his diet, but that he is ready to make a change now. The patient states that he began to get worries, because of his left foot that smells and started looking blood and he has had right big toe and partial left middle toe amputation before foot infection. The patient states that at this time, he has pulsating pain in the area. No fever, no chills. No hematuria or hematochezia. PAST MEDICAL HISTORY: As above; diabetes mellitus type 2, obesity, poor oral circulation of the extremities. ALLERGIES: THE PATIENT IS NOT ALLERGIC WITH ANY MEDICATIONS. HOME MEDICATIONS: Reviewed by me. FAMILY HISTORY: Father and mother, noncontributory. REVIEW OF SYSTEMS: The patient was seen and examined at the bedside, looking comfortable, having dinner. No fever. No chills. No hematuria. No hematochezia. No dizziness. No chest pain. No palpitations. PHYSICAL EXAMINATION VITAL SIGNS: Temperature 98.2, pulse 93, respiratory rate 18, blood pressure 130/70, and pulse oximetry 99%. HEENT: Head; normocephalic and atraumatic. Eyes; PERRLA. Extraocular muscles intact. Conjunctivae clear. Nose patent. Mucous membranes moist. NECK: Supple. No carotid bruits. No JVD or thyromegaly. CHEST: Bilaterally symmetrical. HEART: S1 and S2 positive. LUNGS: Clear to auscultation. ABDOMEN: Soft. Bowel sounds present. No organomegaly. EXTREMITIES: No edema. No cyanosis. left foot is in dressing. NEUROLOGIC: The patient is awake and alert. Follows simple commands. LABORATORY DATA: White blood cells 15.5, hemoglobin 10.1, hematocrit 30.5, platelets 326. Sodium 135, potassium 4, BUN 15, creatinine 1.2, and glucose 109. ASSESSMENT AND PLAN: Mr. Cosme Long is a 68-year-old male with leukocytosis; anemia; obesity; uncontrolled diabetes mellitus, insulin-dependent; hypertension; peripheral neuropathy; peripheral vascular disease; actually came for procedural intervention for his peripheral vascular disease. complicated by wet gangrene, Infectious Disease consultation was requested for the antibiotics. The patient admitted. The patient has sepsis with tachycardia, leukocytosis, left fifth toe infection, uncontrolled diabetes mellitus with neuropathy and previous fifth toe amputations, history of osteomyelitis, CRP and ordered. MRI of left foot was ordered, results are pending. Refrigerating Technician on followup. We will continue antibiotics. Urine culture and sensitivity. Life style modification discussion done with the patient, repeat laboratories. We will followup. Romy Lee MD TA
[2018-12-25 07:08] LABS: HEMOGLOBIN 9.5 g/dL (14.0-18.0); MEAN CELL VOLUME 85.9 fl (80.0-105.0); MEAN CORPUSCULAR HEMOGLOBIN 27.3 pg (25.0-35.0); MEAN CORPUSCULAR HGB CONC 31.8 g/dl (31.0-37.0); MEAN PLATELET VOLUME 9.2 fl (7.0-11.0); RBC 3.48 10^6/uL (3.5-6.1); RED CELL DISTRIBUTION WIDTH 12.6 % (11.5-14.5); WHITE BLOOD COUNT 15.6 10^3/uL (4.5-11.0)
[2018-12-25 07:15] LABS: IRON 35 ug/dL (45-180)
[2018-12-25 07:22] LABS: BLOOD UREA NITROGEN 20 mg/dL (7-21); CALCIUM 9.1 mg/dL (8.4-10.5); GFR NON-AFRICAN AMERICAN 51; HDL CHOLESTEROL 19 mg/dL (29-60)
[2018-12-25 07:24] LABS: % IRON SATURATION 18 % (20-55); TOTAL IRON BINDING CAPACITY 195 ug/dL (261-462)
[2018-12-25 07:25] LABS: LDL CHOLESTEROL 78 mg/dL (0-129)
[2018-12-25] MEDS: Insulin Reg-LOW-Coverage SC SCH ×4 (08:21→22:00)
[2018-12-25] MEDS: Morphine 2 mg/ml ISec IVP PRN ×2 (08:47→20:09)
[2018-12-25] MEDS: Insulin Detemir 100 units/ml Vial (Levemir) SC SCH ×2 (10:07→22:04)
[2018-12-25] MEDS: POLYETHYLENE GLYCOL 3350 17 GM/Dose PACKET PO SCH ×2 (10:07→17:11)
[2018-12-25] MEDS: Ceftaroline 600 MG in Sodium Chloride 0.9% 100 ML IVPB SCH ×2 (10:08→21:02)
--- NOTE | 2018-12-25 11:08 | CP.PCM.PN ---
<Sally Bess - Last Filed: 12/25/18 11:02> Subjective - Date & Time of Evaluation Date of Evaluation: 12/25/18 Time of Evaluation: 11:02 - Subjective Subjective: Podiatry Progress Note: Dr. Fazrana MonroeM seen and evaluated this AM. No acute events overnight. No new lower extremity complaints per patient - admits to continued pain in 5th digit though well controlled via medication. Denies n/v/f/d/c/sob/mkie/cp. Aware he is scheduled for surgery Thursday AM for partial 5th ray amputation. Objective - Vital Signs/Intake and Output Vital Signs (last 24 hours): Temp Pulse Resp BP Pulse Ox 99.4 F 81 20 129/77 98 12/24/18 08:13 12/25/18 10:08 12/24/18 08:13 12/25/18 10:08 12/24/18 08:13 Intake and Output: 12/25/18 12/25/18 06:59 18:59 Intake Total 240 Balance 240 - Medications Medications: Current Medications Ceftaroline Fosamil 600 mg/ (Sodium Chloride) 100 mls @ 100 mls/hr IVPB Q12 [facility]; Protocol Stop: 12/29/18 10:01 Last Admin: 12/25/18 10:08 Dose: 100 mls/hr Ibuprofen (Motrin Tab) 400 mg PO TID PRN PRN Reason: Pain, moderate (4-7) Insulin Detemir (Levemir) 40 unit SC Q12 [facility] Last Admin: 12/25/18 10:07 Dose: 40 units Insulin Human Regular (Humulin R Low) 0 units SC ACHS [facility]; Protocol Last Admin: 12/25/18 08:21 Dose: 1 unit Losartan Potassium (Cozaar) 25 mg PO DAILY [facility] Last Admin: 12/25/18 10:08 Dose: 25 mg Morphine Sulfate (Morphine) 2 mg IVP Q4H PRN PRN Reason: Pain, moderate (4-7) Last Admin: 12/25/18 08:47 Dose: 2 mg Ondansetron HCl (Zofran Inj) 4 mg IVP ONCE PRN PRN Reason: Nausea/Vomiting Oxycodone/Acetaminophen (Percocet 5/325 Mg Tab) 1 tab PO Q4H PRN PRN Reason: Pain, moderate (4-7) Stop: 12/25/18 16:53 Polyethylene Glycol (Miralax) 17 gm PO BID [facility] Last Admin: 12/25/18 10:07 Dose: 17 gm Sitagliptin Phosphate (Januvia) 50 mg PO DAILY [facility] Last Admin: 12/25/18 10:07 Dose: 50 mg - Labs Labs: 12/25/18 05:30 12/25/18 05:30 PT 14.3 SECONDS (9.4-12.5) H 12/22/18 12:30 INR 1.27 12/22/18 12:30 APTT 36.2 Seconds (26.9-38.3) 12/22/18 12:30 - Constitutional Appears: Non-toxic, No Acute Distress - Extremities Exam Additional comments: Vascular: DP/PT non-palpable, CFT > 3 seconds though unable to assess 5th digit L, TG warm to cool, mild edema appreciated to lateral aspect of L 5th digit Ortho: Tenderness with palpation of L 5th digit, L hallux amp, MMT 5/5 Neuro: Gross and protective sensation diminished Derm: Necrotic R 5th digit with + malodor, + purulence in 4th interspace, + serous drainage. - Neurological Exam Neurological Exam: Alert, Awake, Oriented x3 - Psychiatric Exam Psychiatric exam: Normal Affect, Normal Mood Assessment and Plan - Assessment and Plan (Free Text) Assessment: 68M with gangrenous L 5th digit. Plan: Patient seen and evaluated alongside attending, Dr. Barrera WBC trending upwards - 15.6 L foot XR: air within soft tissue 5th digit; radiographic manifestations of OM not apparent but should be considered based on overall appearance LLE MRI report pending - needed for surgical planning for OR Thursday L foot WCx: gram negative anya, gram positive cocci Continue abx - Ceftaroline IV For OR Thursday 8:30 w/Dr. Colmenares - partial 5th ray amputation -Thursday: NPO @ tx Podiatry will continue to follow <Rohan Yanes - Last Filed: 12/28/18 08:11> Objective - Vital Signs/Intake and Output Vital Signs (last 24 hours): Temp Pulse Resp BP Pulse Ox 98.3 F 81 19 166/75 H 99 12/27/18 16:36 12/27/18 16:36 12/27/18 16:36 12/27/18 16:36 12/27/18 16:36 Intake and Output: 12/28/18 12/28/18 06:59 18:59 Intake Total 720 Output Total 700 Balance 20 - Medications Medications: Current Medications Acetaminophen (Tylenol 325mg Tab) 650 mg PO Q4H PRN PRN Reason: Pain, Mild (1-3) Ceftaroline Fosamil 600 mg/ (Sodium Chloride) 100 mls @ 100 mls/hr IVPB Q12 [facility]; Protocol Stop: 12/29/18 10:01 Last Admin: 12/27/18 21:46 Dose: 100 mls/hr Ibuprofen (Motrin Tab) 400 mg PO TID PRN PRN Reason: Pain, moderate (4-7) Insulin Detemir (Levemir) 40 unit SC Q12 [facility] Last Admin: 12/27/18 21:46 Dose: 40 units Insulin Human Regular (Humulin R Low) 0 units SC ACHS [facility]; Protocol Last Admin: 12/27/18 21:32 Dose: Not Given Losartan Potassium (Cozaar) 25 mg PO DAILY [facility] Last Admin: 12/26/18 09:44 Dose: 25 mg Ondansetron HCl (Zofran Inj) 4 mg IVP ONCE PRN PRN Reason: Nausea/Vomiting Oxychlorosene Sodium (Clorpactin Wcs-90) 2 gm TOP DAILY [facility] Oxycodone/Acetaminophen (Percocet 5/325 Mg Tab) 1 tab PO Q4H PRN PRN Reason: Pain, moderate (4-7) Stop: 12/30/18 10:30 Last Admin: 12/28/18 06:17 Dose: 1 tab Oxycodone/Acetaminophen (Percocet 5/325 Mg Tab) 2 tab PO Q4H PRN PRN Reason: Pain, severe (8-10) Stop: 12/30/18 10:30 Polyethylene Glycol (Miralax) 17 gm PO BID [facility] Last Admin: 12/26/18 17:47 Dose: 17 gm Sitagliptin Phosphate (Januvia) 50 mg PO DAILY [facility] Last Admin: 12/26/18 09:43 Dose: 50 mg - Labs Labs: 12/28/18 06:00 12/28/18 06:00 PT 14.3 SECONDS (9.4-12.5) H 12/22/18 12:30 INR 1.27 12/22/18 12:30 APTT 36.2 Seconds (26.9-38.3) 12/22/18 12:30 Attending/Attestation - Attestation I have personally seen and examined this patient.: Yes I have fully participated in the care of the patient.: Yes I have reviewed all pertinent clinical information, including history, physical exam and plan: Yes
--- NOTE | 2018-12-25 12:41 | MRI ---
MRI left forefoot HISTORY: Gas gangrene left 5th digit. COMPARISON: None available. Technique: Multi-echo multiplanar sequences were performed through the left forefoot without the use of intravenous contrast. FINDINGS: In correlation with the plain x-ray, there is a prominent amount of air noted within the subcutaneous soft tissues at the level of the 5th proximal mid and distal phalanges as well as adjacent to the 4th proximal phalanx suggestive for gas gangrene. This manifests as blooming artifact on the MRI. Suggestion of bony destructive changes with relative nonvisualization of the 5th mid and distal phalanges. Clinical correlation. Please correlate with any possible surgical history. Signal abnormality seen within the 5th proximal phalanx with patchy decreased T1 signal and increased STIR signal suggestive for a developing acute osteomyelitis. Chronic changes seen within the 5th metatarsal shaft with bony productive change along the lateral cortex with associated patchy decreased T1 signal as well as patchy increased STIR signal suggestive for superimposed acute on chronic osteomyelitic changes. 1.5 centimeter fluid collection noted at the volar base of the 5th metatarsal head suggestive for a small phlegmon and/or abscess collection. Clinical correlation. Prominent signal abnormality seen within the 4th proximal phalanx as well as the head of the 4th metatarsal bone with patchy decreased T1 signal and increased STIR signal also concerning for an acute osteomyelitis. Clinical correlation. Some patchy reactive edema seen within the 4th mid and distal phalanges. Resection of the 3rd digit to the level of the proximal phalanx. Some residual reactive edema seen within the head of the 3rd proximal phalanx. In correlation with the plain x-ray, there is a fracture deformity seen at the level of the 1st distal phalanx with some mild patchy increased signal seen within the distal fracture fragment. Reticulation and edema seen within the circumferential subcutaneous soft tissues suggestive for underlying cellulitis. Prominent neuropathic changes seen within the midfoot involving the 2nd, 3rd, 4th, and 5th metatarsal bases as well as the corresponding medial, middle, and lateral cuneiform bones as well as the cuboid bone. At these levels there is patchy decreased T1 signal with associated increased signal as well as scattered areas of subchondral cyst formation, osteophytosis, and bony hypertrophy. This is suggestive for a Charcot arthropathy; however, superimposed acute infectious and or inflammatory changes cannot be excluded as they demonstrate a similar MR imaging appearance. Clinical correlation. Fraying with increased signal seen within the volar aspect of the Lisfranc ligament suggestive for partial tearing and or sprain. Some patchy reactive edema seen within the anterior to mid calcaneus, nonspecific. Severe hallux valgus deformity. Impression: 1. In correlation with the plain x-ray, there is a prominent amount of air noted within the subcutaneous soft tissues at the level of the 5th proximal mid and distal phalanges as well as adjacent to the 4th proximal phalanx suggestive for gas gangrene. This manifests as blooming artifact on the MRI. Suggestion of bony destructive changes with relative nonvisualization of the 5th mid and distal phalanges. Clinical correlation. Please correlate with any possible surgical history. Signal abnormality seen within the 5th proximal phalanx with patchy decreased T1 signal and increased STIR signal suggestive for a developing acute osteomyelitis. Chronic changes seen within the 5th metatarsal shaft with bony productive change along the lateral cortex with associated patchy decreased T1 signal as well as patchy increased STIR signal suggestive for superimposed acute on chronic osteomyelitic changes. 2. 1.5 centimeter fluid collection noted at the volar base of the 5th metatarsal head suggestive for a small phlegmon and/or abscess collection. Clinical correlation. 3. Prominent signal abnormality seen within the 4th proximal phalanx as well as the head of the 4th metatarsal bone with patchy decreased T1 signal and increased STIR signal also concerning for an acute osteomyelitis. Clinical correlation. Some patchy reactive edema seen within the 4th mid and distal phalanges. 4. Resection of the 3rd digit to the level of the proximal phalanx. Some residual reactive edema seen within the head of the 3rd proximal phalanx. 5. In correlation with the plain x-ray, there is a fracture deformity seen at the level of the 1st distal phalanx with some mild patchy increased signal seen within the distal fracture fragment. 6. Reticulation and edema seen within the circumferential subcutaneous soft tissues suggestive for underlying cellulitis. 7. Prominent neuropathic changes seen within the midfoot involving the 2nd, 3rd, 4th, and 5th metatarsal bases as well as the corresponding medial, middle, and lateral cuneiform bones as well as the cuboid bone. At these levels there is patchy decreased T1 signal with associated increased signal as well as scattered areas of subchondral cyst formation, osteophytosis, and bony hypertrophy. This is suggestive for a Charcot arthropathy; however, superimposed acute infectious and or inflammatory changes cannot be excluded as they demonstrate a similar MR imaging appearance. Clinical correlation. 8. Fraying with increased signal seen within the volar aspect of the Lisfranc ligament suggestive for partial tearing and or sprain. 9. Some patchy reactive edema seen within the anterior to mid calcaneus, nonspecific. 10. Severe hallux valgus deformity. A preliminary report was generated at 9:15 p.m. on 12/24/[address] Ebenezer Barksdale from [employer]. The
[2018-12-25 13:43] LABS: FOLATE 5.3 ng/mL
--- NOTE | 2018-12-25 23:18 | PN ---
DATE: 12/25/2018 SUBJECTIVE: The patient was seen in room 368, bed 1. No fevers, no chills, no nausea. PHYSICAL EXAMINATION: VITAL SIGNS: Temperature is 98, blood pressure is 150/70, respiratory rate is 20. HEENT: Unremarkable. NECK: Supple. LUNGS: Decreased breath sounds. HEART: Normal S1 and S2. ABDOMEN: Soft, nontender. LABORATORY EXAMINATION: Reveals the patient's white count of 15,600, hemoglobin is 9. Chemistries reveal a BUN of 20, creatinine of 1.4. Microbiology reveals a gram-negative anya, gram-positive cocci. The blood cultures are negative. The patient had a chest x-ray, no active disease. The patient had surgery, cardiac cath on 12/22/2018. The patient is scheduled for surgery on Thursday morning, partial fifth ray amputation. Dr. Lee's note is reviewed. ASSESSMENT AND PLAN: A 68-year-old male with diabetes, hypertension, neuropathy and peripheral vascular disease, who is admitted with sepsis and left toe cellulitis and possible osteomyelitis and gangrene, polymicrobial in a diabetic with neuropathy, peripheral arterial disease and hypertension. Currently on ceftaroline. Awaiting for identification of gram-negative anya and gram-positive cocci on the left foot. The blood cultures are reported to be negative . We will follow closely with you. Catheterization by Dr. Jaskaran Adams was on 12/22/2018. Mino John MD
[2018-12-26] MEDS: Morphine 2 mg/ml ISec IVP PRN (05:58)
[2018-12-26] MEDS: Insulin Reg-LOW-Coverage SC SCH ×4 (07:55→21:33)
[2018-12-26] MEDS: POLYETHYLENE GLYCOL 3350 17 GM/Dose PACKET PO SCH ×2 (09:43→17:47)
[2018-12-26] MEDS: Ceftaroline 600 MG in Sodium Chloride 0.9% 100 ML IVPB SCH ×2 (09:44→21:34)
[2018-12-26] MEDS: Insulin Detemir 100 units/ml Vial (Levemir) SC SCH ×2 (09:45→21:33)
--- NOTE | 2018-12-26 12:41 | PN ---
DATE: 12/26/2018 SUBJECTIVE: The patient is in bed in no acute distress, nontoxic. PHYSICAL EXAMINATION VITAL SIGNS: On exam, the patient's temperature is 97, blood pressure is 140/70 and respiratory rate of . HEENT: Unremarkable. NECK: Supple. LUNGS: Have decreased breath sounds. HEART: Sounds normal S1 and S2. ABDOMEN: Soft and nontender. LABORATORY EXAMINATION: Reveals a white count of 15,600 and hemoglobin of 9. BUN of 20 and creatinine of 1.4. Urinalysis is noted. Microbiology reveals the foot culture is positive for E. coli which is relatively sensitive except for ampicillin and Cipro. Enterococcus avium is sensitive of ampicillin and corynebacterium. Blood cultures are negative. Urine cultures are negative. Currently on ceftaroline. The patient's GFR is 51. ASSESSMENT AND PLAN: This is a 68-year-old male with hypertension, diabetes and diabetic neuropathy, peripheral vascular disease, peripheral arterial disease, admitted with sepsis with a left toe cellulitis, possible osteomyelitis and gangrene polymicrobial, currently on ceftriaxone with Escherichia coli, Enterococcus and corynebacterium. The patient has had a femoral angiogram and he is scheduled for surgery tomorrow for partial fifth ray amputation. We will continue the Teflaro at this time pending amputation, deep culture results and pathology report to determine duration. Also the vascular workup. Mion John MD
--- NOTE | 2018-12-26 14:39 | CP.PCM.PN ---
<Sally Bess - Last Filed: 12/26/18 14:36> Subjective - Date & Time of Evaluation Date of Evaluation: 12/26/18 Time of Evaluation: 14:36 - Subjective Subjective: Podiatry - Drs. Colmenares/Farzana 68M seen and evaluated for left 5th digit gangrene. Patient resting comfortably, NAD. No acute events overnight. Patient offers no new lower extremity complaints. Denies n/v/f/d/c/sob/mike/cp. To OR tomorrow AM for partial 5th ray amputation, will be NPO @ mn. Objective - Vital Signs/Intake and Output Vital Signs (last 24 hours): Temp Pulse Resp BP Pulse Ox 97.7 F 79 20 147/77 98 12/26/18 06:00 12/26/18 09:44 12/26/18 06:00 12/26/18 09:44 12/26/18 06:00 - Medications Medications: Current Medications Ceftaroline Fosamil 600 mg/ (Sodium Chloride) 100 mls @ 100 mls/hr IVPB Q12 [facility]; Protocol Stop: 12/29/18 10:01 Last Admin: 12/26/18 09:44 Dose: 100 mls/hr Ibuprofen (Motrin Tab) 400 mg PO TID PRN PRN Reason: Pain, moderate (4-7) Insulin Detemir (Levemir) 40 unit SC Q12 [facility] Last Admin: 12/26/18 09:45 Dose: 40 units Insulin Human Regular (Humulin R Low) 0 units SC ACHS [facility]; Protocol Last Admin: 12/26/18 13:47 Dose: 3 unit Losartan Potassium (Cozaar) 25 mg PO DAILY [facility] Last Admin: 12/26/18 09:44 Dose: 25 mg Morphine Sulfate (Morphine) 2 mg IVP Q4H PRN PRN Reason: Pain, moderate (4-7) Last Admin: 12/26/18 05:58 Dose: 2 mg Ondansetron HCl (Zofran Inj) 4 mg IVP ONCE PRN PRN Reason: Nausea/Vomiting Polyethylene Glycol (Miralax) 17 gm PO BID [facility] Last Admin: 12/26/18 09:43 Dose: 17 gm Sitagliptin Phosphate (Januvia) 50 mg PO DAILY [facility] Last Admin: 12/26/18 09:43 Dose: 50 mg - Labs Labs: 12/25/18 05:30 12/25/18 05:30 PT 14.3 SECONDS (9.4-12.5) H 12/22/18 12:30 INR 1.27 12/22/18 12:30 APTT 36.2 Seconds (26.9-38.3) 12/22/18 12:30 - Constitutional Appears: Non-toxic, No Acute Distress - Extremities Exam Additional comments: Vascular: DP/PT non-palpable, CFT > 3 seconds though unable to assess 5th digit L, TG warm to cool, mild edema appreciated to lateral aspect of L 5th digit Ortho: Tenderness with palpation of L 5th digit, L hallux amp, MMT 5/5 Neuro: Gross and protective sensation diminished Derm: Necrotic R 5th digit with + malodor, + purulence in 4th interspace - Neurological Exam Neurological Exam: Alert, Awake, Oriented x3 - Psychiatric Exam Psychiatric exam: Normal Affect, Normal Mood Assessment and Plan - Assessment and Plan (Free Text) Assessment: 68M with L 5th digit gangrene Plan: Patient seen and evaluated Discussed with attending, Dr. Colmenares L foot XR: air within soft tissue 5th digit; radiographic manifestations of OM not apparent but should be considered based on overall appearance LLE MRI reviewed: -Air noted to 5th digit as well as 4th proximal phalanx, bony destructive changes of 5th middle and distal phalanges, developing acute OM 5th proximal phalanx, chronic changes 5th metatarsal shaft suggestive for superimposed acute on chronic OM -Phlegmon/abscess surrounding 5th metatarsal head -Possible acute OM 5th proximal phalanx and 4th metatarsal bone -Fracture noted to 1st distal phalanx L foot WCx: e. coli, enterococcus avium, corynebacterium Continue abx - Ceftaroline IV Continue local wound care: betadine, DSD For OR tomorrow Thursday 8:30 w/Dr. Colmenares - partial 5th ray amputation -NPO @ dc ordered Podiatry will continue to follow <Mary Colmenares - Last Filed: 12/26/18 19:30> Objective - Vital Signs/Intake and Output Vital Signs (last 24 hours): Temp Pulse Resp BP Pulse Ox 98.0 F 81 20 125/64 99 12/26/18 18:00 12/26/18 18:00 12/26/18 18:00 12/26/18 18:00 12/26/18 18:00 Intake and Output: 12/26/18 12/27/18 18:59 06:59 Intake Total 100 Balance 100 - Medications Medications: Current Medications Ceftaroline Fosamil 600 mg/ (Sodium Chloride) 100 mls @ 100 mls/hr IVPB Q12 [facility]; Protocol Stop: 12/29/18 10:01 Last Admin: 12/26/18 09:44 Dose: 100 mls/hr Ibuprofen (Motrin Tab) 400 mg PO TID PRN PRN Reason: Pain, moderate (4-7) Insulin Detemir (Levemir) 40 unit SC Q12 [facility] Last Admin: 12/26/18 09:45 Dose: 40 units Insulin Human Regular (Humulin R Low) 0 units SC ACHS [facility]; Protocol Last Admin: 12/26/18 17:47 Dose: 1 unit Losartan Potassium (Cozaar) 25 mg PO DAILY [facility] Last Admin: 12/26/18 09:44 Dose: 25 mg Ondansetron HCl (Zofran Inj) 4 mg IVP ONCE PRN PRN Reason: Nausea/Vomiting Polyethylene Glycol (Miralax) 17 gm PO BID [facility] Last Admin: 12/26/18 17:47 Dose: 17 gm Sitagliptin Phosphate (Januvia) 50 mg PO DAILY [facility] Last Admin: 12/26/18 09:43 Dose: 50 mg - Labs Labs: 12/25/18 05:30 12/25/18 05:30 PT 14.3 SECONDS (9.4-12.5) H 12/22/18 12:30 INR 1.27 12/22/18 12:30 APTT 36.2 Seconds (26.9-38.3) 12/22/18 12:30 Attending/Attestation - Attestation I have personally seen and examined this patient.: Yes I have fully participated in the care of the patient.: Yes I have reviewed all pertinent clinical information, including history, physical exam and plan: Yes
[2018-12-26] MEDS ORDERED: Morphine 2 mg/ml ISec IVP STA (22:47)
[2018-12-27] MEDS ORDERED: Lidocaine 2% Inj (20ml) IJ ONE (08:50)
[2018-12-27] MEDS ORDERED: Bupivacaine 0.5% 50 ML IJ ONE ×2 (08:50→09:38)
--- NOTE | 2018-12-27 08:58 | PN ---
DATE: 12/25/2018 SUBJECTIVE: The patient is a 68-year-old male. The patient was seen and examined at the bedside on 12/25/2018. Looking comfortable. No acute event happened overnight. No fevers, no chills. No hematuria, no hematochezia. No headache or dizziness. No chest pain. No palpitation. Admits that his pain in the fifth digit is controlled very well. PHYSICAL EXAMINATION: VITAL SIGNS: Temperature 99.4, pulse 81, respiratory rate 20, blood pressure 120/70, pulse oximetry 98. HEENT: Head: Normocephalic and atraumatic. Eyes: PERRLA. Extraocular muscles intact. Conjunctivae clear. NECK: Supple. No carotid bruit, JVD or thyromegaly. CHEST: Bilaterally symmetrical. HEART: S1 and S2 positive. LUNGS: Clear to auscultation. ABDOMEN: Soft. Bowel sounds present. No organomegaly. EXTREMITIES: No edema. No cyanosis. NEUROLOGICAL: The patient is awake and alert, moving all four extremities. No focal deficits. MEDICATIONS: Motrin, insulin, morphine, Zofran, oxycodone, MiraLax, Januvia. LABORATORY DATA: White blood cell is 15.6, hemoglobin 9.5, hematocrit 29.9, and platelets 322. Sodium 134, potassium 4.4, BUN 20, creatinine 1.4, and glucose of 132. ASSESSMENT AND PLAN: a 68-year-old male with leukocytosis, anemia, hyperglycemia, peripheral vascular disease, gangrene of the left digit. Podiatry is on the case. Uncontrolled diabetes mellitus. Pain management. Gastrointestinal and deep venous thrombosis prophylaxis. Repeat labs. We will follow. Romy Lee MD MTDD
[2018-12-27] MEDS ORDERED: Lidocaine 2% Inj (20ml) ONE (09:12)
[2018-12-27] MEDS ORDERED: Midazolam 2 MG/2 ML VIAL ONE ×2 (09:26→09:37)
[2018-12-27] MEDS ORDERED: Propofol 10 mg/ml Inj (20 ML) ONE (09:27)
[2018-12-27] MEDS ORDERED: HYDROmorphone 0.5 mg/0.5 ml ISec IVP PRN (10:27)
[2018-12-27] MEDS ORDERED: Oxycodone/Acetaminophen 5/325 mg Tab PO PRN (10:29)
[2018-12-27] MEDS ORDERED: Sodium Chloride 0.9% 1,000 ML IV SCH (10:30)
--- NOTE | 2018-12-27 10:33 | PCM.SURG1 ---
Surgeon's Initial Post Op Note - Surgeon's Notes Surgeon: Dr. Colmenares DPM [employer] Room Attendant: Dr. Pate PGY1 Type of Anesthesia: IV Sedation, Local Anesthesia Administered By: Rhina Pre-Operative Diagnosis: Left foot fourth and fifth digit osteomyelitis and fifth digit gangrene Operative Findings: see dictation. I: 20 cc 1:1 mix 2% lidocaine plain and 0.5% marcaine plain. M: 1/2" iodoform packing, DSD, 4-0 nylon retention suture Post-Operative Diagnosis: same Operation Performed: left foot fifth ray partial amputation Specimen/Specimens Removed: left foot fifth ray bone and soft tissue Estimated Blood Loss: EBL {In ML}: 1 Blood Products Given: N/A Drains Used: No Drains Post-Op Condition: Good Date of Surgery/Procedure: 12/27/18 Time of Surgery/Procedure: 10:33
--- NOTE | 2018-12-27 11:29 | RAD ---
Date of service: 12/27/2018 PROCEDURE: Left Foot Radiographs. HISTORY: s/p left fifth ray partial amputation COMPARISON: 12/24/2018 FINDINGS: BONES: There has been amputation at the level of the mid 5th metatarsal. There air in the adjacent soft tissues. JOINTS: Normal. SOFT TISSUES: Normal. OTHER FINDINGS: None. IMPRESSION: There has been amputation at the level of the mid 5th metatarsal. There air in the adjacent soft tissues.
--- NOTE | 2018-12-27 14:15 | CP.PCM.PN ---
<Kalyan Hoang - Last Filed: 12/27/18 14:09> Subjective - Date & Time of Evaluation Date of Evaluation: 12/27/18 Time of Evaluation: 07:30 - Subjective Subjective: Kalyan Hoang D.O. PGY-3, Internal Medicine Resident, Infectious Disease Progress Note 68 year old male with a PMH of HTN, IDDM with neuropathy, and PVD who presented originally for procedural intervention of his PVD, hospital course complicated by wet gangrene. Infectious disease consultation was requested for the aforementioned. Patient was seen and examined at bedside. Going to OR today. Somewhat anxious. Wants to make changes to get better. Objective - Vital Signs/Intake and Output Vital Signs (last 24 hours): Temp Pulse Resp BP Pulse Ox 98 F 83 12 137/82 99 12/27/18 10:54 12/27/18 10:54 12/27/18 10:54 12/27/18 10:54 12/27/18 10:54 Intake and Output: 12/27/18 12/27/18 06:59 18:59 Intake Total 1080 0 Output Total 600 Balance 480 0 - Medications Medications: Current Medications Acetaminophen (Tylenol 325mg Tab) 650 mg PO Q4H PRN PRN Reason: Pain, Mild (1-3) Ceftaroline Fosamil 600 mg/ (Sodium Chloride) 100 mls @ 100 mls/hr IVPB Q12 [facility]; Protocol Stop: 12/29/18 10:01 Last Admin: 12/26/18 21:34 Dose: 100 mls/hr Ibuprofen (Motrin Tab) 400 mg PO TID PRN PRN Reason: Pain, moderate (4-7) Insulin Detemir (Levemir) 40 unit SC Q12 [facility] Last Admin: 12/26/18 21:33 Dose: 40 units Insulin Human Regular (Humulin R Low) 0 units SC ACHS [facility]; Protocol Last Admin: 12/26/18 21:33 Dose: Not Given Losartan Potassium (Cozaar) 25 mg PO DAILY [facility] Last Admin: 12/26/18 09:44 Dose: 25 mg Ondansetron HCl (Zofran Inj) 4 mg IVP ONCE PRN PRN Reason: Nausea/Vomiting Oxychlorosene Sodium (Clorpactin Wcs-90) 2 gm TOP DAILY [facility] Oxycodone/Acetaminophen (Percocet 5/325 Mg Tab) 1 tab PO Q4H PRN PRN Reason: Pain, moderate (4-7) Stop: 12/30/18 10:30 Oxycodone/Acetaminophen (Percocet 5/325 Mg Tab) 2 tab PO Q4H PRN PRN Reason: Pain, severe (8-10) Stop: 12/30/18 10:30 Polyethylene Glycol (Miralax) 17 gm PO BID [facility] Last Admin: 12/26/18 17:47 Dose: 17 gm Sitagliptin Phosphate (Januvia) 50 mg PO DAILY [facility] Last Admin: 12/26/18 09:43 Dose: 50 mg - Labs Labs: 12/25/18 05:30 12/25/18 05:30 PT 14.3 SECONDS (9.4-12.5) H 12/22/18 12:30 INR 1.27 12/22/18 12:30 APTT 36.2 Seconds (26.9-38.3) 12/22/18 12:30 - Constitutional Appears: No Acute Distress - Head Exam Head Exam: ATRAUMATIC, NORMOCEPHALIC - Eye Exam Eye Exam: EOMI. absent: Scleral icterus - ENT Exam ENT Exam: Mucous Membranes Moist, Normal Oropharynx - Neck Exam Neck exam: Positive for: Normal Inspection - Respiratory Exam Respiratory Exam: Clear to Auscultation Bilateral. absent: Rales, Rhonchi, Whee zes - Cardiovascular Exam Cardiovascular Exam: RRR, +S1, +S2. absent: Gallop, Rubs - GI/Abdominal Exam GI & Abdominal Exam: Normal Bowel Sounds, Soft. absent: Distended, Tenderness - Extremities Exam Additional comments: left foot is wrapped, malodorous with serosangenous output - Neurological Exam Neurological exam: Alert, Oriented x4 - Psychiatric Exam Psychiatric exam: Normal Affect, Normal Mood - Skin Skin Exam: Dry, Warm Assessment and Plan - Assessment and Plan (Free Text) Assessment: 68 year old male with a PMH of HTN, IDDM with neuropathy, and PVD who presented originally for procedural intervention of his PVD, hospital course complicated by wet gangrene. Infectious disease consultation was requested for the aforementioned. Plan: Sepsis from left 5th toe infection, possible osteomyelitis Uncontrolled IDDM with neuropathy and previous toe amputations HTN PVD s/p IR intervention ESR very elevated at 118 CRP >15 MRI foot showed gangrene and likely osteomyelitis Foot wcx showed e. coli, enterococcus avium, corynebacterium Continue teflaro 600mg IV Q12h day 5 BCxs negative 10/12 day 3 UCx negative Podiatry following appreciated, going to OR today We will follow with you Patient was seen and examined and case discussed at length with attending physician Thank you for the pleasure of participating in the care of this interesting patient <Mino John - Last Filed: 12/27/18 15:29> Objective - Vital Signs/Intake and Output Vital Signs (last 24 hours): Temp Pulse Resp BP Pulse Ox 98 F 83 12 137/82 99 12/27/18 10:54 12/27/18 10:54 12/27/18 10:54 12/27/18 10:54 12/27/18 10:54 Intake and Output: 12/27/18 12/27/18 06:59 18:59 Intake Total 1080 0 Output Total 600 Balance 480 0 - Medications Medications: Current Medications Acetaminophen (Tylenol 325mg Tab) 650 mg PO Q4H PRN PRN Reason: Pain, Mild (1-3) Ceftaroline Fosamil 600 mg/ (Sodium Chloride) 100 mls @ 100 mls/hr IVPB Q12 [facility]; Protocol Stop: 12/29/18 10:01 Last Admin: 12/26/18 21:34 Dose: 100 mls/hr Ibuprofen (Motrin Tab) 400 mg PO TID PRN PRN Reason: Pain, moderate (4-7) Insulin Detemir (Levemir) 40 unit SC Q12 [facility] Last Admin: 12/26/18 21:33 Dose: 40 units Insulin Human Regular (Humulin R Low) 0 units SC ACHS [facility]; Protocol Last Admin: 12/26/18 21:33 Dose: Not Given Losartan Potassium (Cozaar) 25 mg PO DAILY [facility] Last Admin: 12/26/18 09:44 Dose: 25 mg Ondansetron HCl (Zofran Inj) 4 mg IVP ONCE PRN PRN Reason: Nausea/Vomiting Oxychlorosene Sodium (Clorpactin Wcs-90) 2 gm TOP DAILY [facility] Oxycodone/Acetaminophen (Percocet 5/325 Mg Tab) 1 tab PO Q4H PRN PRN Reason: Pain, moderate (4-7) Stop: 12/30/18 10:30 Oxycodone/Acetaminophen (Percocet 5/325 Mg Tab) 2 tab PO Q4H PRN PRN Reason: Pain, severe (8-10) Stop: 12/30/18 10:30 Polyethylene Glycol (Miralax) 17 gm PO BID [facility] Last Admin: 12/26/18 17:47 Dose: 17 gm Sitagliptin Phosphate (Januvia) 50 mg PO DAILY [facility] Last Admin: 12/26/18 09:43 Dose: 50 mg - Labs Labs: 12/25/18 05:30 12/25/18 05:30 PT 14.3 SECONDS (9.4-12.5) H 12/22/18 12:30 INR 1.27 12/22/18 12:30 APTT 36.2 Seconds (26.9-38.3) 12/22/18 12:30 Attending/Attestation - Attestation I have personally seen and examined this patient.: Yes I have fully participated in the care of the patient.: Yes I have reviewed all pertinent clinical information, including history, physical exam and plan: Yes
[2018-12-27] MEDS: Oxycodone/Acetaminophen 5/325 mg Tab PO PRN ×2 (16:31→21:47)
--- NOTE | 2018-12-27 20:34 | PN ---
DATE: 12/27/2018 SUBJECTIVE: The patient is a 68-year-old male. The patient was seen and examined at the bedside on 12/27/2018. The patient just came back from foot surgery, a little bit anxious, but no fever, no chills. Tolerated surgery very well. No hematuria. No hematochezia. No fever. No chills. PHYSICAL EXAMINATION: VITAL SIGNS: Temperature 98, pulse 83, respiratory rate 18, blood pressure 130/80, and pulse oximetry 99%. HEENT: Head; normocephalic and atraumatic. Eyes; PERRLA. Extraocular muscles intact. Conjunctivae clear. Nose patent. Mucous membranes moist. NECK: Supple. No carotid bruits, JVD or thyromegaly. CHEST: Bilaterally symmetrical. HEART: S1 and S2 positive. LUNGS: Clear to auscultation. ABDOMEN: Soft. Bowel sounds present. No organomegaly. EXTREMITIES: No edema. No cyanosis except left foot has dressing. NEUROLOGIC: The patient is awake and alert. Follows simple commands, moving all four extremities. MEDICATIONS: Tylenol, ibuprofen, insulin, Zofran, oxycodone, MiraLax, and Januvia. LABORATORY DATA: White blood cell is 15.6, hemoglobin 9.5, hematocrit 29.9, and platelets 323. Sodium 134, potassium 4.4, BUN 20, creatinine 1.3, and glucose of 132. ASSESSMENT AND PLAN: Mr. Cosme Long is a 68-year-old male with leukocytosis, anemia, hyperglycemia, history of hypertension, insulin-dependent diabetes mellitus with neuropathy, and severe peripheral vascular disease. The patient has wet gangrene. Infectious Disease is on the case. The patient had sepsis from left fifth toe infection possibly osteomyelitis, uncontrolled insulin-dependent diabetes mellitus with neuropathy and previous toe amputation. Hypertension and peripheral vascular disease, status post IR intervention. ESR elevated. CRP more than 15. MRI of the foot showed gangrene likely osteomyelitis. Continue Teflaro, plan is for 5 days. Podiatry follows . According to Dr. Colmenares, the patient has left foot fourth and fifth digit osteomyelitis, fifth digit gangrene. They removed the left foot fifth ray partial amputation and soft tissues and they gave good dressing. Gastrointestinal and deep venous thrombosis prophylaxes. Continue wound care. We will follow up. Romy Lee MD TA
[2018-12-27] MEDS: Insulin Reg-LOW-Coverage SC SCH (21:32)
[2018-12-27] MEDS: Insulin Detemir 100 units/ml Vial (Levemir) SC SCH (21:46)
[2018-12-27] MEDS: Ceftaroline 600 MG in Sodium Chloride 0.9% 100 ML IVPB SCH (21:46)
[2018-12-28] MEDS: Oxycodone/Acetaminophen 5/325 mg Tab PO PRN ×3 (06:17→20:54)
[2018-12-28 07:17] LABS: BASO # 0.04 K/mm3 (0.0-2.0); BASO % 0.2 % (0.0-3.0); EOS # 0.3 (0.0-0.7); EOS % 1.4 % (1.5-5.0); HEMOGLOBIN 10.1 g/dL (14.0-18.0); LYMPH # 2.3 (1.2-3.4); LYMPH % 12.2 % (22.0-35.0); MEAN CELL VOLUME 85.2 fl (80.0-105.0); MEAN CORPUSCULAR HEMOGLOBIN 28.2 pg (25.0-35.0); MEAN CORPUSCULAR HGB CONC 33.1 g/dl (31.0-37.0); MEAN PLATELET VOLUME 9.5 fl (7.0-11.0); MONO # 2.1 (0.1-0.6); MONO % 11.1 % (1.0-6.0); RBC 3.58 10^6/uL (3.5-6.1); RED CELL DISTRIBUTION WIDTH 12.4 % (11.5-14.5); WHITE BLOOD COUNT 18.8 10^3/uL (4.5-11.0)
[2018-12-28 07:20] LABS: BLOOD UREA NITROGEN 21 mg/dL (7-21); CALCIUM 9.6 mg/dL (8.4-10.5); GFR NON-AFRICAN AMERICAN 55
[2018-12-28] MEDS: Insulin Reg-LOW-Coverage SC SCH ×4 (08:21→21:01)
[2018-12-28] MEDS: Ceftaroline 600 MG in Sodium Chloride 0.9% 100 ML IVPB SCH ×2 (09:18→21:57)
[2018-12-28] MEDS: POLYETHYLENE GLYCOL 3350 17 GM/Dose PACKET PO SCH ×2 (09:18→17:31)
[2018-12-28] MEDS: Oxychlorosene Topical 2 gm Packet TOP SCH (09:18)
[2018-12-28] MEDS: Insulin Detemir 100 units/ml Vial (Levemir) SC SCH ×2 (09:19→21:01)
--- NOTE | 2018-12-28 10:51 | CP.PCM.PCO ---
Physician Communication Note - Physician Communication Note Physician Communication Note: 4-6 wks of antibiotics, PICC, pathology result, culture sensitivites
--- NOTE | 2018-12-28 10:52 | CP.PCM.PCO ---
Physician Communication Note - Physician Communication Note Physician Communication Note: patient has inquired about home antibiotic therapy if he meets criteria
--- NOTE | 2018-12-28 15:25 | PN ---
DATE: 12/28/2018 SUBJECTIVE: This is a 68-year-old diabetic male with severe peripheral vascular disease status post intervention. After discussion with Dr. Jaskaran Adams, the interventional radiologist, the patient has no plantar arch in his foot. He does have a small vessel coming into the dorsum of his foot. However, he has got severe pedal disease and the vessel does not reach into all of the digits. The patient is seen at bedside with his dressing clean, dry, and intact. He is status post amputation of the fifth toe and metatarsal head on that left foot, 24 hours. PHYSICAL EXAMINATION: VITAL SIGNS: His temperature is 98.2, his pulse is 100, blood pressure is 136/75, respirations are 20. LABORATORY DATA: His labs were also reviewed. His white blood cell count today is 18.8. His H and H is 10.1 and 30.5 and he still has a shift to the left. His ESR was 118 prior to surgery. His SMA is grossly within normal limits except for blood sugar of 139. The patient's dressing was removed. There was some bleeding on surgical dressing, which is more of a purulent plus some hemorrhagic bleeding. He had no bleeding during surgery, almost nil. He did have a sinus tract which went across the dorsum of the foot. He also has osteomyelitis on MRI of the fourth toe, possible the fourth metatarsal and the fifth metatarsal. However, because of the lack of blood supply, we did yesterday exactly what was needed to try and salvage this foot without doing too much of an assault to the foot, which most likely would not heal. We amputated the necrotic fifth toe. We cleaned the necrotic tissue and we opened up the sinus tract to release the purulent drainage. During that surgery, everything was flushed with bacitracin solution. Today, we did flush it with Clorpactin solution. I also spoke to the patient today about all the above findings. The tissue today is still viable. The sinus tract into the dorsum of the foot is still open. However, no longer any purulence is coming from that area. There is no bone exposed at this time. ASSESSMENT AND PLAN: Diabetic with severe peripheral vascular disease, neuropathy, a Anderson 3 ulceration to the lateral left foot, surgical amputation of the fifth toe and metatarsal head. Plan of treatment is to continue with local flushing with Clorpactin packing and dry sterile dressing. We did order him a wedge shoe, which he is receiving today, so he can ambulate. Prognosis for this patient for limb salvage is guarded. This was also discussed with the patient. He will also need PICC line for long-term IV antibiotics since he still has osteomyelitis of his fourth digit and we are awaiting pathology from the remaining of the fifth metatarsal. Mary Colmenares DPM TA
--- NOTE | 2018-12-28 16:27 | CP.PCM.PN ---
<Kalyan Honag - Last Filed: 12/28/18 16:24> Subjective - Date & Time of Evaluation Date of Evaluation: 12/28/18 Time of Evaluation: 09:35 - Subjective Subjective: Kalyan Hoang D.O. PGY-3, Internal Medicine Resident, Infectious Disease Progress Note 68 year old male with a PMH of HTN, IDDM with neuropathy, and PVD who presented originally for procedural intervention of his PVD, hospital course complicated by wet gangrene. Infectious disease consultation was requested for the aforementioned. Patient was seen and examined at bedside. States surgery went well yesterday. In good spirits. Hopeful to go home soon. Objective - Vital Signs/Intake and Output Vital Signs (last 24 hours): Temp Pulse Resp BP Pulse Ox 98.2 F 100 H 20 136/75 98 12/28/18 08:35 12/28/18 09:18 12/28/18 08:35 12/28/18 09:18 12/28/18 08:35 Intake and Output: 12/28/18 12/28/18 06:59 18:59 Intake Total 720 Output Total 700 Balance 20 - Medications Medications: Current Medications Acetaminophen (Tylenol 325mg Tab) 650 mg PO Q4H PRN PRN Reason: Pain, Mild (1-3) Ceftaroline Fosamil 600 mg/ (Sodium Chloride) 100 mls @ 100 mls/hr IVPB Q12 [facility]; Protocol Stop: 12/29/18 10:01 Last Admin: 12/28/18 09:18 Dose: 100 mls/hr Ibuprofen (Motrin Tab) 400 mg PO TID PRN PRN Reason: Pain, moderate (4-7) Insulin Detemir (Levemir) 40 unit SC Q12 [facility] Last Admin: 12/28/18 09:19 Dose: 40 units Insulin Human Regular (Humulin R Low) 0 units SC ACHS [facility]; Protocol Last Admin: 12/28/18 11:59 Dose: 2 unit Losartan Potassium (Cozaar) 25 mg PO DAILY [facility] Last Admin: 12/28/18 09:18 Dose: 25 mg Ondansetron HCl (Zofran Inj) 4 mg IVP ONCE PRN PRN Reason: Nausea/Vomiting Oxychlorosene Sodium (Clorpactin Wcs-90) 2 gm TOP DAILY [facility] Last Admin: 12/28/18 09:18 Dose: 2 gm Oxycodone/Acetaminophen (Percocet 5/325 Mg Tab) 1 tab PO Q4H PRN PRN Reason: Pain, moderate (4-7) Stop: 12/30/18 10:30 Last Admin: 12/28/18 14:18 Dose: 1 tab Oxycodone/Acetaminophen (Percocet 5/325 Mg Tab) 2 tab PO Q4H PRN PRN Reason: Pain, severe (8-10) Stop: 12/30/18 10:30 Polyethylene Glycol (Miralax) 17 gm PO BID [facility] Last Admin: 12/28/18 09:18 Dose: 17 gm Sitagliptin Phosphate (Januvia) 50 mg PO DAILY [facility] Last Admin: 12/28/18 09:18 Dose: 50 mg - Labs Labs: 12/28/18 06:00 12/28/18 06:00 PT 14.3 SECONDS (9.4-12.5) H 12/22/18 12:30 INR 1.27 12/22/18 12:30 APTT 36.2 Seconds (26.9-38.3) 12/22/18 12:30 - Constitutional Appears: No Acute Distress - Head Exam Head Exam: ATRAUMATIC, NORMOCEPHALIC - Eye Exam Eye Exam: EOMI. absent: Scleral icterus - ENT Exam ENT Exam: Mucous Membranes Moist, Normal Oropharynx - Neck Exam Neck exam: Positive for: Normal Inspection - Respiratory Exam Respiratory Exam: Clear to Auscultation Bilateral. absent: Rales, Rhonchi, Wheezes - Cardiovascular Exam Cardiovascular Exam: RRR, +S1, +S2. absent: Gallop, Rubs - GI/Abdominal Exam GI & Abdominal Exam: Normal Bowel Sounds, Soft. absent: Distended, Tenderness - Extremities Exam Additional comments: left foot is wrapped, no longer as malodorous - Neurological Exam Neurological exam: Alert, Oriented x4 - Psychiatric Exam Psychiatric exam: Normal Affect, Normal Mood - Skin Skin Exam: Dry, Warm Assessment and Plan - Assessment and Plan (Free Text) Assessment: 68 year old male with a PMH of HTN, IDDM with neuropathy, and PVD who presented originally for procedural intervention of his PVD, hospital course complicated by wet gangrene. Infectious disease consultation was requested for the aforementioned. Plan: Sepsis from left 5th toe infection, possible osteomyelitis Uncontrolled IDDM with neuropathy and previous toe amputations HTN PVD s/p IR intervention S/p amputation with podiatry Pending surgical cx Continue teflaro 600mg IV Q12h day 6 BCxs negative 10/12 day 4 We will follow with you Patient was seen and examined and case discussed at length with attending physician Thank you for the pleasure of participating in the care of this interesting patient <Mino John - Last Filed: 12/28/18 17:35> Objective - Vital Signs/Intake and Output Vital Signs (last 24 hours): Temp Pulse Resp BP Pulse Ox 98.1 F 107 H 20 114/57 L 96 12/28/18 16:28 12/28/18 16:28 12/28/18 16:28 12/28/18 16:28 12/28/18 16:28 Intake and Output: 12/28/18 12/28/18 06:59 18:59 Intake Total 720 Output Total 700 Balance 20 - Medications Medications: Current Medications Acetaminophen (Tylenol 325mg Tab) 650 mg PO Q4H PRN PRN Reason: Pain, Mild (1-3) Ceftaroline Fosamil 600 mg/ (Sodium Chloride) 100 mls @ 100 mls/hr IVPB Q12 [facility]; Protocol Stop: 12/29/18 10:01 Last Admin: 12/28/18 09:18 Dose: 100 mls/hr Ibuprofen (Motrin Tab) 400 mg PO TID PRN PRN Reason: Pain, moderate (4-7) Insulin Detemir (Levemir) 40 unit SC Q12 [facility] Last Admin: 12/28/18 09:19 Dose: 40 units Insulin Human Regular (Humulin R Low) 0 units SC ACHS [facility]; Protocol Last Admin: 12/28/18 11:59 Dose: 2 unit Losartan Potassium (Cozaar) 25 mg PO DAILY [facility] Last Admin: 12/28/18 09:18 Dose: 25 mg Ondansetron HCl (Zofran Inj) 4 mg IVP ONCE PRN PRN Reason: Nausea/Vomiting Oxychlorosene Sodium (Clorpactin Wcs-90) 2 gm TOP DAILY [facility] Last Admin: 12/28/18 09:18 Dose: 2 gm Oxycodone/Acetaminophen (Percocet 5/325 Mg Tab) 1 tab PO Q4H PRN PRN Reason: Pain, moderate (4-7) Stop: 12/30/18 10:30 Last Admin: 12/28/18 14:18 Dose: 1 tab Oxycodone/Acetaminophen (Percocet 5/325 Mg Tab) 2 tab PO Q4H PRN PRN Reason: Pain, severe (8-10) Stop: 12/30/18 10:30 Polyethylene Glycol (Miralax) 17 gm PO BID [facility] Last Admin: 12/28/18 09:18 Dose: 17 gm Sitagliptin Phosphate (Januvia) 50 mg PO DAILY [facility] Last Admin: 12/28/18 09:18 Dose: 50 mg - Labs Labs: 12/28/18 06:00 12/28/18 06:00 PT 14.3 SECONDS (9.4-12.5) H 12/22/18 12:30 INR 1.27 12/22/18 12:30 APTT 36.2 Seconds (26.9-38.3) 12/22/18 12:30 Attending/Attestation - Attestation I have personally seen and examined this patient.: Yes I have fully participated in the care of the patient.: Yes I have reviewed all pertinent clinical information, including history, physical exam and plan: Yes
--- NOTE | 2018-12-28 16:56 | PN ---
DATE: 12/28/2018 SUBJECTIVE: The patient is a 68-year-old male. The patient was seen and examined at the bedside on 12/28/2018. Looking comfortable, has dressing on the foot. No fever. No chills. No hematuria. No hematochezia. No headache. No dizziness. No chest pain. No palpitation. PHYSICAL EXAMINATION: VITAL SIGNS: Temperature 98.2, pulse 100, blood pressure 132/75, and respiratory rate 20. HEENT: Head; normocephalic and atraumatic. Eyes; PERRLA. Extraocular muscles intact. Conjunctivae clear. Nose patent. Mucous membranes moist. NECK: Supple. No carotid bruits, JVD or thyromegaly. CHEST: Bilaterally symmetrical. HEART: S1 and S2 positive. LUNGS: Clear to auscultation. ABDOMEN: Soft. Bowel sounds present. No organomegaly. EXTREMITIES: No edema. No cyanosis except left foot has dressing. MEDICATIONS: Ceftaroline, oxycodone, Cozaar, insulin, Januvia, Levemir, MiraLax, Motrin, oxycodone, and Zofran. LABORATORY DATA: White blood cell is 18.8, hemoglobin 10.1, hematocrit 30.5, and platelets 417. Sodium 133, potassium 4.4, BUN 21, creatinine 1.6, glucose of 213. ASSESSMENT AND PLAN: Mr. Ethan Aguiar is a 68-year-old male with leukocytosis, anemia, hypochloremia, hyperglycemia, proteinuria, hematuria, foot surgery, getting antibiotics as per Infectious Disease Dr. Jhon, needs 4 to 6 weeks antibiotics, waiting for PICC line, pathology result and culture and sensitivity, as soon as we get, we will gastrointestinal deep venous thrombosis prophylaxis, repeat labs. We will followup. Romy Lee MD [facility]
--- NOTE | 2018-12-29 00:26 | OP ---
PROCEDURE DATE: 12/27/2018 SURGEON: Mary Colmenares DPM SEAM HAMMERER: Semaj Pate DPM, PGY-1 ANESTHESIA: IV sedation with local. ANESTHESIA ADMINISTERED BY: Diane Lantigua MD PREOPERATIVE DIAGNOSIS: Left foot fourth and fifth digit osteomyelitis and fifth digit gangrene. POSTOPERATIVE DIAGNOSIS: Left foot fourth and fifth digit osteomyelitis and fifth digit gangrene. NAME OF PROCEDURE: :Left foot fifth ray partial amputation. INDICATIONS: The patient is a 68-year-old male with the above diagnosis. The patient has exhausted all conservative treatments at this time and now requires surgical intervention. The patient signed the consent after careful explanation of risks, benefits, complications, and alternatives for surgical procedure. No guarantees were given nor implied. PREPARATION: The patient was brought into the operating room and placed on the operating room table in a supine position. A time-out was performed for identification of the correct patient and procedure. After induction of IV sedation, the patient received a total of 20 mL of a 1:1 mixture of 2% lidocaine plain and 0.5% Marcaine plain in a local block fashion to the fifth ray. Once the local anesthesia was achieved, the right foot was then prepped and draped in a normal sterile manner, and the procedure began. No tourniquet was used during the procedure. DESCRIPTION OF PROCEDURE: Attention was then directed to the left fifth metatarsal where a racquet-type incision was made circumferentially to the level of the fifth metatarsophalangeal joint using a #15 blade. The incision was then extended down to the subcutaneous layer down to the level of the bone using a bone clamp to stabilize the toe. The fifth digit was then disarticulated from the level of the fifth metatarsophalangeal joint. The specimen was then passed from the operative field and sent to Pathology. Using a fresh 15-blade, all necrotic and nonviable tissues were then excisionally debrided from the surgical site. Next, utilizing a #15 blade, all periosteal tissues were carefully dissected off the metatarsal. Using a sagittal saw, the proximal aspect of the fifth metatarsal shaft was then resected and passed from the operative field. All rough edges were then smoothened using a rasp and sagittal saw. The incision site was then irrigated with copious amount of normal saline and Bacitracin using pulse lavage. Retention suture technique was used to coapt the proximal aspect of the incision using 4-0 nylon. The rest of the site was packed with 1/2-inch iodoform packing, and dry sterile dressing was used. Vague of blood flow was seen upon amputation of the fifth digit and distal metatarsal. No further procedure was performed. Actually, amputation was recommended and limited. The fourth digit and distal metatarsal were observed and sent for analysis such as for osteomyelitis. The patient will need four to six weeks of IV antibiotics with treatment. POSTOPERATIVE CONDITION: The patient tolerated the anesthesia and procedure well and was escorted to the recovery room with vital signs stable and neurovascular status intact to the left foot. The patient is to remain nonweightbearing to the left lower extremity. Podiatry will continue to follow the patient while in-house and will follow up with Dr. Colmenares upon discharge. Semaj Pate DPM Mary Colmenares DPM TA
[2018-12-29] MEDS: Oxycodone/Acetaminophen 5/325 mg Tab PO PRN ×2 (06:10→14:07)
[2018-12-29] MEDS: Insulin Reg-LOW-Coverage SC SCH ×4 (08:05→21:44)
[2018-12-29] MEDS: POLYETHYLENE GLYCOL 3350 17 GM/Dose PACKET PO SCH ×3 (09:39→17:43)
[2018-12-29] MEDS: Insulin Detemir 100 units/ml Vial (Levemir) SC SCH ×2 (09:40→21:44)
[2018-12-29] MEDS: Oxychlorosene Topical 2 gm Packet TOP SCH (10:57)
[2018-12-29] MEDS: Ceftaroline 600 MG in Sodium Chloride 0.9% 100 ML IVPB SCH (10:58)
--- NOTE | 2018-12-29 11:08 | CP.PCM.PN ---
<Semaj Pate - Last Filed: 12/29/18 11:04> Subjective - Date & Time of Evaluation Date of Evaluation: 12/29/18 Time of Evaluation: 11:04 - Subjective Subjective: Podiatry progress note - Drs. Yanes/Darrain 68M seen and evaluated this AM with Dr. Yanes POD 2 left fifth ray partial amputation. Denies pain to the surgical site and has no pedal complaints at this time. Dressing is clean/dry/intact. Denies n/v/f/c/sob/cp and has partaken in PT with his wedge shoe. Objective - Vital Signs/Intake and Output Vital Signs (last 24 hours): Temp Pulse Resp BP Pulse Ox 98 F 85 20 129/70 98 12/29/18 08:14 12/29/18 09:39 12/29/18 08:14 12/29/18 09:39 12/29/18 08:14 Intake and Output: 12/29/18 12/29/18 06:59 18:59 Intake Total 680 Output Total 400 Balance 280 - Medications Medications: Current Medications Acetaminophen (Tylenol 325mg Tab) 650 mg PO Q4H PRN PRN Reason: Pain, Mild (1-3) Ibuprofen (Motrin Tab) 400 mg PO TID PRN PRN Reason: Pain, moderate (4-7) Insulin Detemir (Levemir) 40 unit SC Q12 [facility] Last Admin: 12/29/18 09:40 Dose: 40 units Insulin Human Regular (Humulin R Low) 0 units SC ACHS [facility]; Protocol Last Admin: 12/29/18 08:05 Dose: Not Given Losartan Potassium (Cozaar) 25 mg PO DAILY [facility] Last Admin: 12/29/18 09:39 Dose: 25 mg Ondansetron HCl (Zofran Inj) 4 mg IVP ONCE PRN PRN Reason: Nausea/Vomiting Oxychlorosene Sodium (Clorpactin Wcs-90) 2 gm TOP DAILY [facility] Last Admin: 12/29/18 10:57 Dose: 2 gm Oxycodone/Acetaminophen (Percocet 5/325 Mg Tab) 1 tab PO Q4H PRN PRN Reason: Pain, moderate (4-7) Stop: 12/30/18 10:30 Last Admin: 12/29/18 06:10 Dose: 1 tab Oxycodone/Acetaminophen (Percocet 5/325 Mg Tab) 2 tab PO Q4H PRN PRN Reason: Pain, severe (8-10) Stop: 12/30/18 10:30 Polyethylene Glycol (Miralax) 17 gm PO BID [facility] Last Admin: 12/29/18 09:39 Dose: 17 gm Sitagliptin Phosphate (Januvia) 50 mg PO DAILY [facility] Last Admin: 12/29/18 09:40 Dose: 50 mg - Labs Labs: 12/28/18 06:00 12/28/18 06:00 PT 14.3 SECONDS (9.4-12.5) H 12/22/18 12:30 INR 1.27 12/22/18 12:30 APTT 36.2 Seconds (26.9-38.3) 12/22/18 12:30 - Constitutional Appears: Non-toxic - Head Exam Head Exam: ATRAUMATIC - Extremities Exam Additional comments: LLE focused exam VASC: DP and PT pulses nonpalpable; cap refill at 3 seconds to all digits; mild edema noted to the LE; pedal hairgrowth absent; temp gradient warm to warm DERM: surgical site appears stable; fibrotic wound base present with minimal granular tissue; retention sutures intact at the proximal aspect of site; no draining or bleeding appreciated; no purulent discharge; periwound skin appears dark but not necrotic ORTHO: no pain on palpation of surgical site; amputation to fifth digit NEURO: gross and protective sensation diminished - Neurological Exam Neurological Exam: Alert, Awake, Oriented x3 - Psychiatric Exam Psychiatric exam: Normal Affect, Normal Mood Assessment and Plan - Assessment and Plan (Free Text) Assessment: 68M POD 2 left fifth ray partial amputation Plan: Patient seen and evaluated with Dr. Farzana SABA Continue PT in wedge shoe Surgical wound cx - E. coli Continue abx per ID Surgical path report pending - f/u Recommend 4-6 weeks IV abx - pending path report Podiatry to continue to follow <Rohan Yanes - Last Filed: 12/29/18 16:42> Objective - Vital Signs/Intake and Output Vital Signs (last 24 hours): Temp Pulse Resp BP Pulse Ox 98.3 F 85 20 130/72 95 12/29/18 16:02 12/29/18 16:02 12/29/18 16:02 12/29/18 16:02 12/29/18 16:02 Intake and Output: 12/29/18 12/29/18 06:59 18:59 Intake Total 680 Output Total 400 Balance 280 - Medications Medications: Current Medications Acetaminophen (Tylenol 325mg Tab) 650 mg PO Q4H PRN PRN Reason: Pain, Mild (1-3) Ceftriaxone Sodium (Rocephin 2 Gm Ivpb) 2 gm in 100 mls @ 100 mls/hr IVPB DAILY [facility]; Protocol Stop: 01/26/19 15:22 Last Admin: 12/29/18 16:03 Dose: 100 mls/hr Ibuprofen (Motrin Tab) 400 mg PO TID PRN PRN Reason: Pain, moderate (4-7) Insulin Detemir (Levemir) 40 unit SC Q12 [facility] Last Admin: 12/29/18 09:40 Dose: 40 units Insulin Human Regular (Humulin R Low) 0 units SC ACHS [facility]; Protocol Last Admin: 12/29/18 12:18 Dose: 2 unit Losartan Potassium (Cozaar) 25 mg PO DAILY [facility] Last Admin: 12/29/18 09:39 Dose: 25 mg Ondansetron HCl (Zofran Inj) 4 mg IVP ONCE PRN PRN Reason: Nausea/Vomiting Oxychlorosene Sodium (Clorpactin Wcs-90) 2 gm TOP DAILY [facility] Last Admin: 12/29/18 10:57 Dose: 2 gm Oxycodone/Acetaminophen (Percocet 5/325 Mg Tab) 1 tab PO Q4H PRN PRN Reason: Pain, moderate (4-7) Stop: 12/30/18 10:30 Last Admin: 12/29/18 14:07 Dose: 1 tab Oxycodone/Acetaminophen (Percocet 5/325 Mg Tab) 2 tab PO Q4H PRN PRN Reason: Pain, severe (8-10) Stop: 12/30/18 10:30 Polyethylene Glycol (Miralax) 17 gm PO BID [facility] Last Admin: 12/29/18 09:39 Dose: 17 gm Sitagliptin Phosphate (Januvia) 50 mg PO DAILY [facility] Last Admin: 12/29/18 09:40 Dose: 50 mg - Labs Labs: 12/29/18 11:00 12/29/18 11:00 PT 14.3 SECONDS (9.4-12.5) H 12/22/18 12:30 INR 1.27 12/22/18 12:30 APTT 36.2 Seconds (26.9-38.3) 12/22/18 12:30 Attending/Attestation - Attestation I have personally seen and examined this patient.: Yes I have fully participated in the care of the patient.: Yes I have reviewed all pertinent clinical information, including history, physical exam and plan: Yes
[2018-12-29 11:13] LABS: BASO # 0.05 K/mm3 (0.0-2.0); BASO % 0.3 % (0.0-3.0); EOS # 0.3 (0.0-0.7); EOS % 1.9 % (1.5-5.0); HEMOGLOBIN 9.4 g/dL (14.0-18.0); LYMPH # 1.9 (1.2-3.4); LYMPH % 11.3 % (22.0-35.0); MEAN CELL VOLUME 85.7 fl (80.0-105.0); MEAN CORPUSCULAR HEMOGLOBIN 28.1 pg (25.0-35.0); MEAN CORPUSCULAR HGB CONC 32.8 g/dl (31.0-37.0); MONO # 1.5 (0.1-0.6); MONO % 9.3 % (1.0-6.0); RBC 3.35 10^6/uL (3.5-6.1); RED CELL DISTRIBUTION WIDTH 12.5 % (11.5-14.5); WHITE BLOOD COUNT 16.6 10^3/uL (4.5-11.0)
[2018-12-29 11:26] LABS: ALB/GLOB RATIO 0.9 (1.1-1.8); ALBUMIN 3.7 g/dL (3.0-4.8); ALT/SGPT 19 U/L (7-56); AST/SGOT 43 U/L (17-59); BLOOD UREA NITROGEN 26 mg/dL (7-21); CALCIUM 9.6 mg/dL (8.4-10.5); GFR NON-AFRICAN AMERICAN 51
--- NOTE | 2018-12-29 12:11 | CP.PCM.PCO ---
Physician Communication Note - Physician Communication Note Physician Communication Note: 4-6wks IV Rocephin 2gm daily, wound is still open will follow podiatry rec
[2018-12-29] MEDS: cefTRIAXone 2 GM IN NS 2 GM/100 ML BAG IVPB SCH (16:03)
--- NOTE | 2018-12-29 16:16 | CP.PCM.PN ---
<Kalyan Hoang - Last Filed: 12/29/18 16:14> Subjective - Date & Time of Evaluation Date of Evaluation: 12/29/18 Time of Evaluation: 09:10 - Subjective Subjective: Kalyan Hoang D.O. PGY-3, Internal Medicine Resident, Infectious Disease Progress Note 68 year old male with a PMH of HTN, IDDM with neuropathy, and PVD who presented originally for procedural intervention of his PVD, hospital course complicated by wet gangrene. Infectious disease consultation was requested for the aforementioned. Patient was seen and examined at bedside. Doing well at this time. Still having some foot pain sporadically. No other acute complaints. Objective - Vital Signs/Intake and Output Vital Signs (last 24 hours): Temp Pulse Resp BP Pulse Ox 98.3 F 85 20 130/72 95 12/29/18 16:02 12/29/18 16:02 12/29/18 16:02 12/29/18 16:02 12/29/18 16:02 Intake and Output: 12/29/18 12/29/18 06:59 18:59 Intake Total 680 Output Total 400 Balance 280 - Medications Medications: Current Medications Acetaminophen (Tylenol 325mg Tab) 650 mg PO Q4H PRN PRN Reason: Pain, Mild (1-3) Ceftriaxone Sodium (Rocephin 2 Gm Ivpb) 2 gm in 100 mls @ 100 mls/hr IVPB DAILY [facility]; Protocol Stop: 01/26/19 15:22 Last Admin: 12/29/18 16:03 Dose: 100 mls/hr Ibuprofen (Motrin Tab) 400 mg PO TID PRN PRN Reason: Pain, moderate (4-7) Insulin Detemir (Levemir) 40 unit SC Q12 J[facility] Last Admin: 12/29/18 09:40 Dose: 40 units Insulin Human Regular (Humulin R Low) 0 units SC ACHS JC; Protocol Last Admin: 12/29/18 12:18 Dose: 2 unit Losartan Potassium (Cozaar) 25 mg PO DAILY [facility] Last Admin: 12/29/18 09:39 Dose: 25 mg Ondansetron HCl (Zofran Inj) 4 mg IVP ONCE PRN PRN Reason: Nausea/Vomiting Oxychlorosene Sodium (Clorpactin Wcs-90) 2 gm TOP DAILY [facility] Last Admin: 12/29/18 10:57 Dose: 2 gm Oxycodone/Acetaminophen (Percocet 5/325 Mg Tab) 1 tab PO Q4H PRN PRN Reason: Pain, moderate (4-7) Stop: 12/30/18 10:30 Last Admin: 12/29/18 14:07 Dose: 1 tab Oxycodone/Acetaminophen (Percocet 5/325 Mg Tab) 2 tab PO Q4H PRN PRN Reason: Pain, severe (8-10) Stop: 12/30/18 10:30 Polyethylene Glycol (Miralax) 17 gm PO BID [facility] Last Admin: 12/29/18 09:39 Dose: 17 gm Sitagliptin Phosphate (Januvia) 50 mg PO DAILY [facility] Last Admin: 12/29/18 09:40 Dose: 50 mg - Labs Labs: 12/29/18 11:00 12/29/18 11:00 PT 14.3 SECONDS (9.4-12.5) H 12/22/18 12:30 INR 1.27 12/22/18 12:30 APTT 36.2 Seconds (26.9-38.3) 12/22/18 12:30 - Constitutional Appears: No Acute Distress - Head Exam Head Exam: ATRAUMATIC, NORMOCEPHALIC - Eye Exam Eye Exam: EOMI. absent: Scleral icterus - ENT Exam ENT Exam: Mucous Membranes Moist, Normal Oropharynx - Neck Exam Neck exam: Positive for: Normal Inspection - Respiratory Exam Respiratory Exam: Clear to Auscultation Bilateral. absent: Rales, Rhonchi, Whe ezes - Cardiovascular Exam Cardiovascular Exam: RRR, +S1, +S2. absent: Gallop, Rubs - GI/Abdominal Exam GI & Abdominal Exam: Normal Bowel Sounds, Soft. absent: Distended, Tenderness - Extremities Exam Additional comments: left foot is wrapped, no longer as malodorous - Neurological Exam Neurological exam: Alert, Oriented x4 - Psychiatric Exam Psychiatric exam: Normal Affect, Normal Mood - Skin Skin Exam: Dry, Warm Assessment and Plan - Assessment and Plan (Free Text) Assessment: 68 year old male with a PMH of HTN, IDDM with neuropathy, and PVD who presented originally for procedural intervention of his PVD, hospital course complicated by wet gangrene. Infectious disease consultation was requested for the aforementioned. Plan: Sepsis from left 5th toe osteomyelitis Uncontrolled IDDM with neuropathy and previous toe amputations HTN PVD s/p IR intervention S/p amputation Wound growing sensitive E coli Will switch to ceftriaxone 2g IV QD for a total of 28 days S/p PICC line for above abx BCxs negative 10/12 day 5 We will follow with you Patient was seen and examined and case discussed at length with attending physi ankit Thank you for the pleasure of participating in the care of this interesting patient <AlvaroMino - Last Filed: 12/29/18 20:53> Objective - Vital Signs/Intake and Output Vital Signs (last 24 hours): Temp Pulse Resp BP Pulse Ox 98.3 F 85 20 130/72 95 12/29/18 16:02 12/29/18 16:02 12/29/18 16:02 12/29/18 16:02 12/29/18 16:02 Intake and Output: 12/29/18 12/30/18 18:59 06:59 Intake Total 100 Balance 100 - Medications Medications: Current Medications Acetaminophen (Tylenol 325mg Tab) 650 mg PO Q4H PRN PRN Reason: Pain, Mild (1-3) Ceftriaxone Sodium (Rocephin 2 Gm Ivpb) 2 gm in 100 mls @ 100 mls/hr IVPB DAILY [facility]; Protocol Stop: 01/26/19 15:22 Last Admin: 12/29/18 16:03 Dose: 100 mls/hr Ibuprofen (Motrin Tab) 400 mg PO TID PRN PRN Reason: Pain, moderate (4-7) Insulin Detemir (Levemir) 40 unit SC Q12 [facility] Last Admin: 12/29/18 09:40 Dose: 40 units Insulin Human Regular (Humulin R Low) 0 units SC ACHS [facility]; Protocol Last Admin: 12/29/18 17:39 Dose: 1 unit Losartan Potassium (Cozaar) 25 mg PO DAILY [facility] Last Admin: 12/29/18 09:39 Dose: 25 mg Ondansetron HCl (Zofran Inj) 4 mg IVP ONCE PRN PRN Reason: Nausea/Vomiting Oxychlorosene Sodium (Clorpactin Wcs-90) 2 gm TOP DAILY [facility] Last Admin: 12/29/18 10:57 Dose: 2 gm Oxycodone/Acetaminophen (Percocet 5/325 Mg Tab) 1 tab PO Q4H PRN PRN Reason: Pain, moderate (4-7) Stop: 12/30/18 10:30 Last Admin: 12/29/18 14:07 Dose: 1 tab Oxycodone/Acetaminophen (Percocet 5/325 Mg Tab) 2 tab PO Q4H PRN PRN Reason: Pain, severe (8-10) Stop: 12/30/18 10:30 Polyethylene Glycol (Miralax) 17 gm PO BID [facility] Last Admin: 12/29/18 17:43 Dose: Not Given Sitagliptin Phosphate (Januvia) 50 mg PO DAILY [facility] Last Admin: 12/29/18 09:40 Dose: 50 mg - Labs Labs: 12/29/18 11:00 12/29/18 11:00 PT 14.3 SECONDS (9.4-12.5) H 12/22/18 12:30 INR 1.27 12/22/18 12:30 APTT 36.2 Seconds (26.9-38.3) 12/22/18 12:30 Attending/Attestation - Attestation I have personally seen and examined this patient.: Yes I have fully participated in the care of the patient.: Yes I have reviewed all pertinent clinical information, including history, physical exam and plan: Yes
--- NOTE | 2018-12-30 08:34 | PN ---
DATE: 12/29/2018 SUBJECTIVE: The patient is a 68-year-old male. The patient is seen and examined at the bedside on 12/29/2018. Looking comfortable. No fever, no chills. No hematuria, no hematochezia. No headache, no dizziness. No chest pain, no palpitation. Has resting on the left foot, wound is still open. Podiatry is on the case. amputation of the left foot two toes. ID is on the case also. The patient is doing well at this time. Still having some foot pain once in a while. PHYSICAL EXAMINATION: VITAL SIGNS: Temperature 98.3, pulse 85, respiratory rate 20, blood pressure 130/70, and pulse oximetry 95%. HEENT: Head is normocephalic and atraumatic. Eyes; PERRLA, extraocular muscles intact, conjunctivae clear. Nose patent. Mucous membranes moist. NECK: Supple. No carotid bruits, JVD or thyromegaly. CHEST: Bilaterally symmetrical. HEART: S1 and S2 positive. LUNGS: Clear to auscultation. ABDOMEN: Soft. Bowel sounds present. No organomegaly. EXTREMITIES: No edema. No cyanosis. NEUROLOGIC: The patient is awake and alert. Moving all four extremities. No focal deficits. MEDICATIONS: Tylenol, Rocephin, ibuprofen, insulin, Cozaar, Zofran, oxycodone, Miralax, and Januvia. LABORATORY DATA: White blood cells 16.6, hemoglobin 9.4, hematocrit 28.7, and platelet 344. Sodium 135, potassium 4.8, BUN 26, creatinine 1.4, and glucose 230. ASSESSMENT AND PLAN: Mr. Cosme Long is a 68-year-old male with leukocytosis, anemia, hyperchloremia, renal insufficiency, hyperglycemia, history of hypertension, neuropathy, peripheral vascular disease, has wet gangrene. ID is on the case. Podiatry is on the case. Sepsis of the left fifth toe osteomyelitis, uncontrolled diabetes mellitus, neuropathy and previous toe amputation, status post intervention , sensitive Escherichia coli. According to ID, we will treated with ceftriaxone 2 g IV daily for total of 28 days. had PICC line for above antibiotics. Gastrointestinal and deep venous thrombosis prophylaxis. Repeat labs. We will follow up. Romy Lee MD TA
[2018-12-30] MEDS: Insulin Reg-LOW-Coverage SC SCH ×4 (09:13→21:15)
[2018-12-30] MEDS: POLYETHYLENE GLYCOL 3350 17 GM/Dose PACKET PO SCH ×2 (09:46→17:49)
[2018-12-30] MEDS: cefTRIAXone 2 GM IN NS 2 GM/100 ML BAG IVPB SCH (09:46)
[2018-12-30] MEDS: Oxychlorosene Topical 2 gm Packet TOP SCH (09:47)
--- NOTE | 2018-12-30 09:48 | CP.PCM.PN ---
<Semaj Pate - Last Filed: 12/30/18 09:45> Subjective - Date & Time of Evaluation Date of Evaluation: 12/30/18 Time of Evaluation: 09:45 - Subjective Subjective: Podiatry progress note - Drs. Yanes/Darrian 68M seen and evaluated this AM with Dr. Colmenares POD 3 left fifth ray partial amputation. Denies pain to the surgical site and has no pedal complaints at this time. Dressing is clean/dry/intact. Denies n/v/f/c/sob/cp and has partaken in PT with his wedge shoe. Objective - Vital Signs/Intake and Output Vital Signs (last 24 hours): Temp Pulse Resp BP Pulse Ox 98 F 87 20 125/79 98 12/30/18 08:05 12/30/18 08:05 12/30/18 08:05 12/30/18 08:05 12/30/18 08:05 Intake and Output: 12/30/18 12/30/18 06:59 18:59 Intake Total 660 Balance 660 - Medications Medications: Current Medications Acetaminophen (Tylenol 325mg Tab) 650 mg PO Q4H PRN PRN Reason: Pain, Mild (1-3) Ceftriaxone Sodium (Rocephin 2 Gm Ivpb) 2 gm in 100 mls @ 100 mls/hr IVPB DAILY [facility]; Protocol Stop: 01/26/19 15:22 Last Admin: 12/29/18 16:03 Dose: 100 mls/hr Ibuprofen (Motrin Tab) 400 mg PO TID PRN PRN Reason: Pain, moderate (4-7) Insulin Detemir (Levemir) 40 unit SC Q12 [facility] Last Admin: 12/29/18 21:44 Dose: 40 units Insulin Human Regular (Humulin R Low) 0 units SC ACHS [facility]; Protocol Last Admin: 12/30/18 09:13 Dose: Not Given Losartan Potassium (Cozaar) 25 mg PO DAILY [facility] Last Admin: 12/29/18 09:39 Dose: 25 mg Ondansetron HCl (Zofran Inj) 4 mg IVP ONCE PRN PRN Reason: Nausea/Vomiting Oxychlorosene Sodium (Clorpactin Wcs-90) 2 gm TOP DAILY [facility] Last Admin: 12/29/18 10:57 Dose: 2 gm Oxycodone/Acetaminophen (Percocet 5/325 Mg Tab) 1 tab PO Q4H PRN PRN Reason: Pain, moderate (4-7) Stop: 12/30/18 10:30 Last Admin: 12/29/18 14:07 Dose: 1 tab Oxycodone/Acetaminophen (Percocet 5/325 Mg Tab) 2 tab PO Q4H PRN PRN Reason: Pain, severe (8-10) Stop: 12/30/18 10:30 Polyethylene Glycol (Miralax) 17 gm PO BID [facility] Last Admin: 12/29/18 17:43 Dose: Not Given Silver Sulfadiazine (Silvadene 1% 25 Gm) 20 gm TP DAILY [facility] Sitagliptin Phosphate (Januvia) 50 mg PO DAILY [facility] Last Admin: 12/29/18 09:40 Dose: 50 mg - Labs Labs: 12/29/18 11:00 12/29/18 11:00 PT 14.3 SECONDS (9.4-12.5) H 12/22/18 12:30 INR 1.27 12/22/18 12:30 APTT 36.2 Seconds (26.9-38.3) 12/22/18 12:30 - Constitutional Appears: Non-toxic - Head Exam Head Exam: ATRAUMATIC - Extremities Exam Additional comments: LLE focused exam VASC: DP and PT pulses nonpalpable; cap refill at 3 seconds to all digits; mild edema noted to the LE; pedal hairgrowth absent; temp gradient warm to warm DERM: surgical site appears stable; fibrotic wound base present with minimal granular tissue; retention sutures intact at the proximal aspect of site; no draining or bleeding appreciated; no purulent discharge; periwound skin appears dark but not necrotic ORTHO: no pain on palpation of surgical site; amputation to fifth digit NEURO: gross and protective sensation diminished - Neurological Exam Neurological Exam: Alert, Awake, Oriented x3 - Psychiatric Exam Psychiatric exam: Normal Affect Assessment and Plan - Assessment and Plan (Free Text) Assessment: 68M POD 2 left fifth ray partial amputation Plan: Patient seen and evaluated with Dr. Darrian SABA Discussed with wound center - patient currently not a candidate for HBO therapy through insurance Continue PT in wedge shoe Surgical wound cx - E. coli Continue abx per ID Surgical path report - osteomyelitis extending to the resection margin Recommend 4-6 weeks IV abx PICC placed Dressing: wound packed with silvadene soaked gauze, ABD, kerlix Podiatry to continue to follow <Mary Colmenares - Last Filed: 01/02/19 15:38> Objective - Vital Signs/Intake and Output Vital Signs (last 24 hours): Temp Pulse Resp BP Pulse Ox 97.2 F L 76 18 116/70 99 12/31/18 18:00 12/31/18 18:00 12/31/18 18:00 12/31/18 18:00 12/31/18 18:00 - Labs Labs: 12/31/18 05:30 12/31/18 05:30 PT 14.3 SECONDS (9.4-12.5) H 12/22/18 12:30 INR 1.27 12/22/18 12:30 APTT 36.2 Seconds (26.9-38.3) 12/22/18 12:30 Attending/Attestation - Attestation I have personally seen and examined this patient.: Yes I have fully participated in the care of the patient.: Yes I have reviewed all pertinent clinical information, including history, physical exam and plan: Yes Notes (Text): 01/02/19 15:36 pt with severe PVD despite vascular angioplasty with stent - pt has no plantar arch; during surgery pt had no bleeding - wound healing prognosis is very poor; this was discussed with patient; awaiting Dr Adams return to see if patiebnt is a by-pass candidate
[2018-12-30] MEDS: Insulin Detemir 100 units/ml Vial (Levemir) SC SCH ×2 (11:50→21:15)
[2018-12-30] MEDS: Silver Sulfadiazine 1% Cream (25 gm) TP SCH (12:29)
--- NOTE | 2018-12-30 15:07 | CP.PCM.PN ---
<Kalyan Hoang - Last Filed: 12/30/18 15:04> Subjective - Date & Time of Evaluation Date of Evaluation: 12/30/18 Time of Evaluation: 07:50 - Subjective Subjective: Kalyan Hoang D.O. PGY-3, Internal Medicine Resident, Infectious Disease Progress Note 68 year old male with a PMH of HTN, IDDM with neuropathy, and PVD who presented originally for procedural intervention of his PVD, hospital course complicated by sepsis from left foot osteomyelitis. Infectious disease consultation was requested for the aforementioned. Patient was seen and examined at bedside. Excited at the prospect of going home soon. Had R arm picc line inserted. No acute complaints. Objective - Vital Signs/Intake and Output Vital Signs (last 24 hours): Temp Pulse Resp BP Pulse Ox 98 F 87 20 125/79 98 12/30/18 08:05 12/30/18 09:45 12/30/18 08:05 12/30/18 09:45 12/30/18 08:05 Intake and Output: 12/30/18 12/30/18 06:59 18:59 Intake Total 660 Balance 660 - Medications Medications: Current Medications Acetaminophen (Tylenol 325mg Tab) 650 mg PO Q4H PRN PRN Reason: Pain, Mild (1-3) Ceftriaxone Sodium (Rocephin 2 Gm Ivpb) 2 gm in 100 mls @ 100 mls/hr IVPB DAILY [facility]; Protocol Stop: 01/26/19 15:22 Last Admin: 12/30/18 09:46 Dose: 100 mls/hr Ibuprofen (Motrin Tab) 400 mg PO TID PRN PRN Reason: Pain, moderate (4-7) Insulin Detemir (Levemir) 40 unit SC Q12 [facility] Last Admin: 12/30/18 11:50 Dose: 40 units Insulin Human Regular (Humulin R Low) 0 units SC ACHS [facility]; Protocol Last Admin: 12/30/18 11:59 Dose: 1 unit Losartan Potassium (Cozaar) 25 mg PO DAILY [facility] Last Admin: 12/30/18 09:45 Dose: 25 mg Ondansetron HCl (Zofran Inj) 4 mg IVP ONCE PRN PRN Reason: Nausea/Vomiting Oxychlorosene Sodium (Clorpactin Wcs-90) 2 gm TOP DAILY [facility] Last Admin: 12/30/18 09:47 Dose: 2 gm Polyethylene Glycol (Miralax) 17 gm PO BID [facility] Last Admin: 12/30/18 09:46 Dose: 17 gm Silver Sulfadiazine (Silvadene 1% 25 Gm) 20 gm TP DAILY [facility] Last Admin: 12/30/18 12:29 Dose: Not Given Sitagliptin Phosphate (Januvia) 50 mg PO DAILY [facility] Last Admin: 12/30/18 09:45 Dose: 50 mg - Labs Labs: 12/29/18 11:00 12/29/18 11:00 PT 14.3 SECONDS (9.4-12.5) H 12/22/18 12:30 INR 1.27 12/22/18 12:30 APTT 36.2 Seconds (26.9-38.3) 12/22/18 12:30 - Constitutional Appears: No Acute Distress - Head Exam Head Exam: ATRAUMATIC, NORMOCEPHALIC - Eye Exam Eye Exam: EOMI. absent: Scleral icterus - ENT Exam ENT Exam: Mucous Membranes Moist, Normal Oropharynx - Neck Exam Neck exam: Positive for: Normal Inspection - Respiratory Exam Respiratory Exam: Clear to Auscultation Bilateral. absent: Rales, Rhonchi, Wheezes - Cardiovascular Exam Cardiovascular Exam: RRR, +S1, +S2. absent: Gallop, Rubs - GI/Abdominal Exam GI & Abdominal Exam: Normal Bowel Sounds, Soft. absent: Distended, Tenderness - Extremities Exam Additional comments: left foot is wrapped, R arm picc line in place - Neurological Exam Neurological exam: Alert, Oriented x4 - Psychiatric Exam Psychiatric exam: Normal Affect, Normal Mood - Skin Skin Exam: Dry, Warm Assessment and Plan - Assessment and Plan (Free Text) Assessment: 68 year old male with a PMH of HTN, IDDM with neuropathy, and PVD who presented originally for procedural intervention of his PVD, hospital course complicated by sepsis from left foot osteomyelitis. Infectious disease consultation was requested for the aforementioned. Plan: Sepsis from left 5th toe osteomyelitis Uncontrolled IDDM with neuropathy and previous toe amputations HTN PVD s/p IR intervention Continue with ceftriaxone 2g IV QD day 2/28 days S/p PICC line Leukocytosis downtrending Afebrile We will follow with you Patient was seen and examined and case discussed at length with attending physician Thank you for the pleasure of participating in the care of this interesting patient <Mino oJhn - Last Filed: 12/30/18 16:54> Objective - Vital Signs/Intake and Output Vital Signs (last 24 hours): Temp Pulse Resp BP Pulse Ox 98 F 84 18 130/70 98 12/30/18 16:16 12/30/18 16:16 12/30/18 16:16 12/30/18 16:16 12/30/18 16:16 Intake and Output: 12/30/18 12/30/18 06:59 18:59 Intake Total 660 Balance 660 - Medications Medications: Current Medications Acetaminophen (Tylenol 325mg Tab) 650 mg PO Q4H PRN PRN Reason: Pain, Mild (1-3) Last Admin: 12/30/18 16:39 Dose: 650 mg Ceftriaxone Sodium (Rocephin 2 Gm Ivpb) 2 gm in 100 mls @ 100 mls/hr IVPB DAILY [facility]; Protocol Stop: 01/26/19 15:22 Last Admin: 12/30/18 09:46 Dose: 100 mls/hr Ibuprofen (Motrin Tab) 400 mg PO TID PRN PRN Reason: Pain, moderate (4-7) Insulin Detemir (Levemir) 40 unit SC Q12 [facility] Last Admin: 12/30/18 11:50 Dose: 40 units Insulin Human Regular (Humulin R Low) 0 units SC ACHS [facility]; Protocol Last Admin: 12/30/18 11:59 Dose: 1 unit Losartan Potassium (Cozaar) 25 mg PO DAILY [facility] Last Admin: 12/30/18 09:45 Dose: 25 mg Ondansetron HCl (Zofran Inj) 4 mg IVP ONCE PRN PRN Reason: Nausea/Vomiting Oxychlorosene Sodium (Clorpactin Wcs-90) 2 gm TOP DAILY [facility] Last Admin: 12/30/18 09:47 Dose: 2 gm Polyethylene Glycol (Miralax) 17 gm PO BID [facility] Last Admin: 12/30/18 09:46 Dose: 17 gm Silver Sulfadiazine (Silvadene 1% 25 Gm) 20 gm TP DAILY [facility] Last Admin: 12/30/18 12:29 Dose: Not Given Sitagliptin Phosphate (Januvia) 50 mg PO DAILY [facility] Last Admin: 12/30/18 09:45 Dose: 50 mg - Labs Labs: 12/29/18 11:00 12/29/18 11:00 PT 14.3 SECONDS (9.4-12.5) H 12/22/18 12:30 INR 1.27 12/22/18 12:30 APTT 36.2 Seconds (26.9-38.3) 12/22/18 12:30 Attending/Attestation - Attestation I have personally seen and examined this patient.: Yes I have fully participated in the care of the patient.: Yes I have reviewed all pertinent clinical information, including history, physical exam and plan: Yes
--- NOTE | 2018-12-30 18:42 | PN ---
DATE: 12/30/2018 SUBJECTIVE: The patient is a 68-year-old male. The patient is seen and examined at the bedside on 12/30/2018. Sitting comfortably. No fever. No chills. No hematuria. No hematochezia. No headache. No dizziness. No chest pain. No palpitation. Seen by Podiatry, Dr. Colmenares, POD 3, left fifth ray partial amputation. Denies pain to the surgical site and has no pedal complication at this time and dressing is clean, dry and intact. According to Podiatry, the patient will need re-vascular procedure in order to heal at Surgery. He revealed little to no blood flow to the amputation site. Dr. Jaskaran Adams on the case. REVIEW OF SYSTEMS: The patient is seen and looking comfortable. No fever. No chills. No hematuria. No hematochezia. No headache. No dizziness. As above. PHYSICAL EXAMINATION: VITAL SIGNS: Temperature 98, pulse 87, respirations 20, blood pressure 125/79, and pulse oximetry 98. HEENT: Head is normocephalic and atraumatic. Eyes: PERRLA. Extraocular muscles intact. Conjunctiva clear. Nose patent. Mucous membrane moist. NECK: Supple. No carotid bruit. No JVD or thyromegaly. CHEST: Bilaterally symmetrical. HEART: S1 and S2, positive. LUNGS: Clear to auscultation. ABDOMEN: Soft. Bowel sounds present. No organomegaly. EXTREMITIES: No edema. No cyanosis. NEUROLOGIC: The patient is awake and alert. Follows simple commands. MEDICATIONS: Tylenol, Rocephin, Motrin, Levemir, losartan, Zofran, oxycodone, OxyContin, MiraLax, Silvadene, and Januvia. LABORATORY DATA: White blood cells 16.6, hemoglobin 9.4, hematocrit 28.7, and platelet 344. Sodium 135, potassium 4.8, BUN 26, creatinine 1.4, and glucose 230. ASSESSMENT AND PLAN: Mr. Ethan Aguiar is a 68-year-old male with leukocytosis, anemia, increased BUN, hypochloremia with postoperative day third, left fifth ray partial amputation. According to Dr. Colmenares, the patient currently is not a candidate for hyperbaric oxygen therapy, though continue PT , Surgical wound culture shows Escherichia colitis. Continue antibiotics as per Infectious Disease. Surgical pathology shows osteomyelitis extending to the resection margin, requiring four to six weeks of IV antibiotics, PICC line is placed. Dressing is done with wound VAC with Silvadene soaked gauze. Appreciated Podiatry input. Seen by Dr. John, Infectious Disease. The patient has a history of hypertension, insulin-dependant diabetes mellitus, neuropathy, peripheral vascular disease, history of wet gangrene. The patient has sepsis from left fifth toe osteomyelitis. Now, Dr. John started ceftriaxone, need for 28 days. Gastrointestinal and deep venous thrombosis prophylaxis. Repeat labs. We will follow up. Romy Lee MD MT[facility]ina
[2018-12-30] MEDS: Oxycodone/Acetaminophen 5/325 mg Tab PO PRN (20:05)
[2018-12-31] MEDS: Oxycodone/Acetaminophen 5/325 mg Tab PO PRN (03:46)
[2018-12-31 05:45] LABS: HEMOGLOBIN 9.2 g/dL (14.0-18.0); MEAN CELL VOLUME 84.9 fl (80.0-105.0); MEAN CORPUSCULAR HEMOGLOBIN 28.4 pg (25.0-35.0); MEAN CORPUSCULAR HGB CONC 33.5 g/dl (31.0-37.0); RBC 3.24 10^6/uL (3.5-6.1); RED CELL DISTRIBUTION WIDTH 12.4 % (11.5-14.5)
[2018-12-31 05:51] LABS: BLOOD UREA NITROGEN 25 mg/dL (7-21); CALCIUM 9.5 mg/dL (8.4-10.5); GFR NON-AFRICAN AMERICAN > 60
--- NOTE | 2018-12-31 09:05 | CP.PCM.PN ---
<Semaj Pate - Last Filed: 12/31/18 08:52> Subjective - Date & Time of Evaluation Date of Evaluation: 12/31/18 Time of Evaluation: 08:52 - Subjective Subjective: Podiatry progress note - Drs. Yanes/Darrian 68M seen and evaluated this AM with Dr. Yanes POD 4 left fifth ray partial amputation. Denies pain to the surgical site and has no pedal complaints at this time. Dressing is clean/dry/intact. Denies n/v/f/c/sob/cp and has partaken in PT with his wedge shoe. Objective - Vital Signs/Intake and Output Vital Signs (last 24 hours): Temp Pulse Resp BP Pulse Ox 97.5 F L 80 20 117/73 100 12/31/18 06:00 12/31/18 06:00 12/31/18 06:00 12/31/18 06:00 12/31/18 06:00 Intake and Output: 12/31/18 12/31/18 06:59 18:59 Intake Total 1140 Balance 1140 - Medications Medications: Current Medications Acetaminophen (Tylenol 325mg Tab) 650 mg PO Q4H PRN PRN Reason: Pain, Mild (1-3) Last Admin: 12/30/18 16:39 Dose: 650 mg Ceftriaxone Sodium (Rocephin 2 Gm Ivpb) 2 gm in 100 mls @ 100 mls/hr IVPB DAILY [facility]; Protocol Stop: 01/26/19 15:22 Last Admin: 12/30/18 09:46 Dose: 100 mls/hr Ibuprofen (Motrin Tab) 400 mg PO TID PRN PRN Reason: Pain, moderate (4-7) Insulin Detemir (Levemir) 40 unit SC Q12 [facility] Last Admin: 12/30/18 21:15 Dose: 40 units Insulin Human Regular (Humulin R Low) 0 units SC ACHS [facility]; Protocol Last Admin: 12/30/18 21:15 Dose: Not Given Losartan Potassium (Cozaar) 25 mg PO DAILY [facility] Last Admin: 12/30/18 09:45 Dose: 25 mg Ondansetron HCl (Zofran Inj) 4 mg IVP ONCE PRN PRN Reason: Nausea/Vomiting Oxychlorosene Sodium (Clorpactin Wcs-90) 2 gm TOP DAILY [facility] Last Admin: 12/30/18 09:47 Dose: 2 gm Oxycodone/Acetaminophen (Percocet 5/325 Mg Tab) 1 tab PO Q4H PRN PRN Reason: Pain, moderate (4-7) Stop: 01/02/19 19:53 Last Admin: 12/31/18 03:46 Dose: 1 tab Polyethylene Glycol (Miralax) 17 gm PO BID [facility] Last Admin: 12/30/18 17:49 Dose: 17 gm Silver Sulfadiazine (Silvadene 1% 25 Gm) 20 gm TP DAILY [facility] Last Admin: 12/30/18 12:29 Dose: Not Given Sitagliptin Phosphate (Januvia) 50 mg PO DAILY [facility] Last Admin: 12/30/18 09:45 Dose: 50 mg - Labs Labs: 12/31/18 05:30 12/31/18 05:30 PT 14.3 SECONDS (9.4-12.5) H 12/22/18 12:30 INR 1.27 12/22/18 12:30 APTT 36.2 Seconds (26.9-38.3) 12/22/18 12:30 - Constitutional Appears: Non-toxic - Head Exam Head Exam: ATRAUMATIC - Extremities Exam Additional comments: LLE focused exam VASC: DP and PT pulses nonpalpable; cap refill at 3 seconds to all digits; mild edema noted to the LE; pedal hairgrowth absent; temp gradient warm to warm DERM: surgical site appears stable; fibrotic wound base present with minimal granular tissue; retention sutures intact at the proximal aspect of site; no draining or bleeding appreciated; no purulent discharge; periwound skin appears dark but not necrotic ORTHO: no pain on palpation of surgical site; amputation to fifth digit NEURO: gross and protective sensation diminished - Neurological Exam Neurological Exam: Alert, Awake, Oriented x3 - Psychiatric Exam Psychiatric exam: Normal Affect, Normal Mood Assessment and Plan - Assessment and Plan (Free Text) Assessment: 68M POD 4 left fifth ray partial amputation Plan: Patient seen and evaluated with Dr. Farzana SABA Discussed with wound center - patient currently not a candidate for HBO therapy through insurance Continue PT in wedge shoe Surgical wound cx - E. coli Continue abx per ID Surgical path report - osteomyelitis extending to the resection margin Recommend 4-6 weeks IV abx PICC placed Dressing: wound packed with silvadene soaked gauze, ABD, kerlix Podiatry to continue to follow <Rohan Yanes - Last Filed: 12/31/18 19:05> Objective - Vital Signs/Intake and Output Vital Signs (last 24 hours): Temp Pulse Resp BP Pulse Ox 97.2 F L 76 18 116/70 99 12/31/18 18:00 12/31/18 18:00 12/31/18 18:00 12/31/18 18:00 12/31/18 18:00 - Medications Medications: Current Medications Acetaminophen (Tylenol 325mg Tab) 650 mg PO Q4H PRN PRN Reason: Pain, Mild (1-3) Last Admin: 12/30/18 16:39 Dose: 650 mg Ceftriaxone Sodium (Rocephin 2 Gm Ivpb) 2 gm in 100 mls @ 100 mls/hr IVPB DAILY [facility]; Protocol Stop: 01/26/19 15:22 Last Admin: 12/31/18 09:11 Dose: 100 mls/hr Ibuprofen (Motrin Tab) 400 mg PO TID PRN PRN Reason: Pain, moderate (4-7) Insulin Detemir (Levemir) 40 unit SC Q12 [facility] Last Admin: 12/31/18 09:11 Dose: 40 units Insulin Human Regular (Humulin R Low) 0 units SC ACHS [facility]; Protocol Last Admin: 12/31/18 17:13 Dose: 1 unit Losartan Potassium (Cozaar) 25 mg PO DAILY [facility] Last Admin: 12/31/18 09:10 Dose: 25 mg Metronidazole (Flagyl) 500 mg PO Q8 [facility]; Protocol Last Admin: 12/31/18 13:40 Dose: 500 mg Ondansetron HCl (Zofran Inj) 4 mg IVP ONCE PRN PRN Reason: Nausea/Vomiting Oxychlorosene Sodium (Clorpactin Wcs-90) 2 gm TOP DAILY [facility] Last Admin: 12/31/18 11:59 Dose: Not Given Oxycodone/Acetaminophen (Percocet 5/325 Mg Tab) 1 tab PO Q4H PRN PRN Reason: Pain, moderate (4-7) Stop: 01/02/19 19:53 Last Admin: 12/31/18 03:46 Dose: 1 tab Polyethylene Glycol (Miralax) 17 gm PO BID [facility] Last Admin: 12/31/18 17:13 Dose: 17 gm Silver Sulfadiazine (Silvadene 1% 25 Gm) 20 gm TP DAILY [facility] Last Admin: 12/31/18 12:00 Dose: Not Given Sitagliptin Phosphate (Januvia) 50 mg PO DAILY [facility] Last Admin: 12/31/18 09:11 Dose: 50 mg - Labs Labs: 12/31/18 05:30 12/31/18 05:30 PT 14.3 SECONDS (9.4-12.5) H 12/22/18 12:30 INR 1.27 12/22/18 12:30 APTT 36.2 Seconds (26.9-38.3) 12/22/18 12:30 Attending/Attestation - Attestation I have personally seen and examined this patient.: Yes I have fully participated in the care of the patient.: Yes I have reviewed all pertinent clinical information, including history, physical exam and plan: Yes
[2018-12-31] MEDS: POLYETHYLENE GLYCOL 3350 17 GM/Dose PACKET PO SCH ×2 (09:10→17:13)
[2018-12-31] MEDS: cefTRIAXone 2 GM IN NS 2 GM/100 ML BAG IVPB SCH (09:11)
[2018-12-31] MEDS: Insulin Detemir 100 units/ml Vial (Levemir) SC SCH (09:11)
[2018-12-31] MEDS: Insulin Reg-LOW-Coverage SC SCH ×3 (11:59→17:13)
[2018-12-31] MEDS: Oxychlorosene Topical 2 gm Packet TOP SCH (11:59)
[2018-12-31] MEDS: Silver Sulfadiazine 1% Cream (25 gm) TP SCH (12:00)
--- NOTE | 2018-12-31 14:18 | CP.PCM.PN ---
<Kalyan Hoang - Last Filed: 12/31/18 14:16> Subjective - Date & Time of Evaluation Date of Evaluation: 12/31/18 Time of Evaluation: 08:35 - Subjective Subjective: Kalyan Hoang D.O. PGY-3, Internal Medicine Resident, Infectious Disease Progress Note 68 year old male with a PMH of HTN, IDDM with neuropathy, and PVD who presented originally for procedural intervention of his PVD, hospital course complicated by sepsis from left foot osteomyelitis. Infectious disease consultation was requested for the aforementioned. Patient was seen and examined at bedside. No acute issues Staying positive. Objective - Vital Signs/Intake and Output Vital Signs (last 24 hours): Temp Pulse Resp BP Pulse Ox 97.5 F L 80 20 117/73 100 12/31/18 06:00 12/31/18 06:00 12/31/18 06:00 12/31/18 09:10 12/31/18 06:00 Intake and Output: 12/31/18 12/31/18 06:59 18:59 Intake Total 1140 Balance 1140 - Medications Medications: Current Medications Acetaminophen (Tylenol 325mg Tab) 650 mg PO Q4H PRN PRN Reason: Pain, Mild (1-3) Last Admin: 12/30/18 16:39 Dose: 650 mg Ceftriaxone Sodium (Rocephin 2 Gm Ivpb) 2 gm in 100 mls @ 100 mls/hr IVPB DAILY [facility]; Protocol Stop: 01/26/19 15:22 Last Admin: 12/31/18 09:11 Dose: 100 mls/hr Ibuprofen (Motrin Tab) 400 mg PO TID PRN PRN Reason: Pain, moderate (4-7) Insulin Detemir (Levemir) 40 unit SC Q12 [facility] Last Admin: 12/31/18 09:11 Dose: 40 units Insulin Human Regular (Humulin R Low) 0 units SC ACHS [facility]; Protocol Last Admin: 12/31/18 12:00 Dose: Not Given Losartan Potassium (Cozaar) 25 mg PO DAILY [facility] Last Admin: 12/31/18 09:10 Dose: 25 mg Metronidazole (Flagyl) 500 mg PO Q8 [facility]; Protocol Last Admin: 12/31/18 13:40 Dose: 500 mg Ondansetron HCl (Zofran Inj) 4 mg IVP ONCE PRN PRN Reason: Nausea/Vomiting Oxychlorosene Sodium (Clorpactin Wcs-90) 2 gm TOP DAILY [facility] Last Admin: 12/31/18 11:59 Dose: Not Given Oxycodone/Acetaminophen (Percocet 5/325 Mg Tab) 1 tab PO Q4H PRN PRN Reason: Pain, moderate (4-7) Stop: 01/02/19 19:53 Last Admin: 12/31/18 03:46 Dose: 1 tab Polyethylene Glycol (Miralax) 17 gm PO BID [facility] Last Admin: 12/31/18 09:10 Dose: 17 gm Silver Sulfadiazine (Silvadene 1% 25 Gm) 20 gm TP DAILY [facility] Last Admin: 12/31/18 12:00 Dose: Not Given Sitagliptin Phosphate (Januvia) 50 mg PO DAILY [facility] Last Admin: 12/31/18 09:11 Dose: 50 mg - Labs Labs: 12/31/18 05:30 12/31/18 05:30 PT 14.3 SECONDS (9.4-12.5) H 12/22/18 12:30 INR 1.27 12/22/18 12:30 APTT 36.2 Seconds (26.9-38.3) 12/22/18 12:30 - Constitutional Appears: No Acute Distress - Head Exam Head Exam: ATRAUMATIC, NORMOCEPHALIC - Eye Exam Eye Exam: EOMI. absent: Scleral icterus - ENT Exam ENT Exam: Mucous Membranes Moist, Normal Oropharynx - Neck Exam Neck exam: Positive for: Normal Inspection - Respiratory Exam Respiratory Exam: Clear to Auscultation Bilateral. absent: Rales, Rhonchi, Wheezes - Cardiovascular Exam Cardiovascular Exam: RRR, +S1, +S2. absent: Gallop, Rubs - GI/Abdominal Exam GI & Abdominal Exam: Normal Bowel Sounds, Soft. absent: Distended, Tenderness - Extremities Exam Additional comments: left foot is wrapped, R arm picc line - Neurological Exam Neurological exam: Alert, Oriented x4 - Psychiatric Exam Psychiatric exam: Normal Affect, Normal Mood - Skin Skin Exam: Dry, Warm Assessment and Plan - Assessment and Plan (Free Text) Assessment: 68 year old male with a PMH of HTN, IDDM with neuropathy, and PVD who presented originally for procedural intervention of his PVD, hospital course complicated by sepsis from left foot osteomyelitis. Infectious disease consultation was requested for the aforementioned. Plan: Sepsis from left 5th toe osteomyelitis Uncontrolled IDDM with neuropathy and previous toe amputations HTN PVD s/p IR intervention Continue with ceftriaxone 2g IV QD day 3/28 days Given persistent leukocytosis, possibility of anaerobes in wound, will start metronidazole 500mg PO Q8H Afebrile We will follow with you Patient was seen and examined and case discussed at length with attending physician Thank you for the pleasure of participating in the care of this interesting patient <Mino John - Last Filed: 12/31/18 19:25> Objective - Vital Signs/Intake and Output Vital Signs (last 24 hours): Temp Pulse Resp BP Pulse Ox 97.2 F L 76 18 116/70 99 12/31/18 18:00 12/31/18 18:00 12/31/18 18:00 12/31/18 18:00 12/31/18 18:00 - Medications Medications: Current Medications Acetaminophen (Tylenol 325mg Tab) 650 mg PO Q4H PRN PRN Reason: Pain, Mild (1-3) Last Admin: 12/30/18 16:39 Dose: 650 mg Ceftriaxone Sodium (Rocephin 2 Gm Ivpb) 2 gm in 100 mls @ 100 mls/hr IVPB DAILY [facility]; Protocol Stop: 01/26/19 15:22 Last Admin: 12/31/18 09:11 Dose: 100 mls/hr Ibuprofen (Motrin Tab) 400 mg PO TID PRN PRN Reason: Pain, moderate (4-7) Insulin Detemir (Levemir) 40 unit SC Q12 [facility] Last Admin: 12/31/18 09:11 Dose: 40 units Insulin Human Regular (Humulin R Low) 0 units SC ACHS [facility]; Protocol Last Admin: 12/31/18 17:13 Dose: 1 unit Losartan Potassium (Cozaar) 25 mg PO DAILY [facility] Last Admin: 12/31/18 09:10 Dose: 25 mg Metronidazole (Flagyl) 500 mg PO Q8 [facility]; Protocol Last Admin: 12/31/18 13:40 Dose: 500 mg Ondansetron HCl (Zofran Inj) 4 mg IVP ONCE PRN PRN Reason: Nausea/Vomiting Oxychlorosene Sodium (Clorpactin Wcs-90) 2 gm TOP DAILY [facility] Last Admin: 12/31/18 11:59 Dose: Not Given Oxycodone/Acetaminophen (Percocet 5/325 Mg Tab) 1 tab PO Q4H PRN PRN Reason: Pain, moderate (4-7) Stop: 01/02/19 19:53 Last Admin: 12/31/18 03:46 Dose: 1 tab Polyethylene Glycol (Miralax) 17 gm PO BID [facility] Last Admin: 12/31/18 17:13 Dose: 17 gm Silver Sulfadiazine (Silvadene 1% 25 Gm) 20 gm TP DAILY [facility] Last Admin: 12/31/18 12:00 Dose: Not Given Sitagliptin Phosphate (Januvia) 50 mg PO DAILY [facility] Last Admin: 12/31/18 09:11 Dose: 50 mg - Labs Labs: 12/31/18 05:30 12/31/18 05:30 PT 14.3 SECONDS (9.4-12.5) H 12/22/18 12:30 INR 1.27 12/22/18 12:30 APTT 36.2 Seconds (26.9-38.3) 12/22/18 12:30 Attending/Attestation - Attestation I have personally seen and examined this patient.: Yes I have fully participated in the care of the patient.: Yes I have reviewed all pertinent clinical information, including history, physical exam and plan: Yes
[2018-12-31 16:50] VITALS: BP 116/70; PULSE 76; RESP 18
[2018-12-31 18:24] VITALS: TEMP 97.2; O2SAT 99
== END 2018-12-31 20:26 | DRG 252 ==
LOC: SDSVAS 12:12 → 2RSO 17:57 → SDSVAS 12-23 15:01 → 2RSO 12-23 15:01 → 3RNO 12-23 21:37
PROVIDERS: ADMIT Radiology Vascular & Interventional Radiology; ATTEND Internal Medicine
PROC: 047Q34Z Dilation of Left Anterior Tibial Artery with Drug-eluting Intraluminal Device, Percutaneous Approach (ICD-10-PCS; 2018-12-22)
PROC: 047N3Z1 Dilation of Left Popliteal Artery using Drug-Coated Balloon, Percutaneous Approach (ICD-10-PCS; 2018-12-22)
PROC: 047U34Z Dilation of Left Peroneal Artery with Drug-eluting Intraluminal Device, Percutaneous Approach (ICD-10-PCS; 2018-12-22)
PROC: 0Y6Y0Z0 Detachment at Left 5th Toe, Complete, Open Approach (ICD-10-PCS; principal; 2018-12-27 08:30)
PROC: 02HV33Z Insertion of Infusion Device into Superior Vena Cava, Percutaneous Approach (ICD-10-PCS; 2018-12-28)
PROC: B548ZZA Ultrasonography of Superior Vena Cava, Guidance (ICD-10-PCS; 2018-12-28)
DX: I70.245 Atherosclerosis of native arteries of left leg with ulceration of other part of foot (principal); A41.9 Sepsis, unspecified organism; E11.52 Type 2 diabetes mellitus with diabetic peripheral angiopathy with gangrene; M86.172 Other acute osteomyelitis, left ankle and foot; E11.69 Type 2 diabetes mellitus with other specified complication; I10 Essential (primary) hypertension; Z79.4 Long term (current) use of insulin; Z79.899 Other long term (current) drug therapy; E11.40 Type 2 diabetes mellitus with diabetic neuropathy, unspecified; E11.65 Type 2 diabetes mellitus with hyperglycemia; E11.621 Type 2 diabetes mellitus with foot ulcer; E66.9 Obesity, unspecified; D64.9 Anemia, unspecified; E87.8 Other disorders of electrolyte and fluid balance, not elsewhere classified; L03.032 Cellulitis of left toe; L97.529 Non-pressure chronic ulcer of other part of left foot with unspecified severity; N28.9 Disorder of kidney and ureter, unspecified; Z89.411 Acquired absence of right great toe; Z89.421 Acquired absence of other right toe(s); B96.20 Unspecified Escherichia coli [E. coli] as the cause of diseases classified elsewhere; Z68.34 Body mass index [BMI] 34.0-34.9, adult

== ENCOUNTER 2019-01-19 09:57 | Day surgery (SDC) | payer MEDICARE ==
[2019-01-18 13:36] VITALS: BMI 36.1
[2019-01-19] MEDS ORDERED: Propofol 10 mg/ml Inj (20 ML) ONE ×2 (11:53→12:32)
[2019-01-19] MEDS ORDERED: Midazolam 2 MG/2 ML VIAL ONE (11:54)
[2019-01-19] MEDS ORDERED: Lidocaine 2% Inj (20ml) ONE (12:13)
[2019-01-19] MEDS ORDERED: Gentamicin 80 mg in 0.9% NS 80 MG/100 ML BAG IVPB ONE (12:14)
[2019-01-19] MEDS ORDERED: cefTRIAXone (Rocephin) 1 gm Inj ONE (12:15)
[2019-01-19] MEDS ORDERED: CEFTRIAXONE IVPB ONE (12:18)
[2019-01-19] MEDS ORDERED: NS IVPB ONE (12:18)
[2019-01-19] MEDS ORDERED: Sodium Chloride 0.9% 1,000 ML IV SCH (13:15)
--- NOTE | 2019-01-19 13:15 | PCM.SURG1 ---
Surgeon's Initial Post Op Note - Surgeon's Notes Surgeon: DR.Diane Colmenares. DPM Delivery Coordinator: Dr. Buzz Mcdonald.DPM/PGY1 Type of Anesthesia: IV Sedation, Local Anesthesia Administered By: Dr. Nation Pre-Operative Diagnosis: Left foot non healing ulceration. Operative Findings: See dictation. Injectables: 10cc of lidocaine 2% plain. Materials: Integra bilayer graft 2"X2", Skin staple, Misonix handle. Post-Operative Diagnosis: Left foot non healing ulceration. Operation Performed: Left foot non healing ulcer debridement with application of integra bilayer graft. Specimen/Specimens Removed: 1- Debrided soft tissue of the left foot ulcer. 2- Deep tissue culture from the left foot ulcer. Estimated Blood Loss: EBL {In ML}: 3 Blood Products Given: N/A Drains Used: No Drains Post-Op Condition: Good Date of Surgery/Procedure: 01/19/19 Time of Surgery/Procedure: 13:16
[2019-01-19 14:35] VITALS: BP 144/76; PULSE 64; RESP 18; TEMP 97; O2SAT 95
--- NOTE | 2019-01-19 23:53 | OP ---
PROCEDURE DATE: 01/19/2019 SURGEON: Mary Colmenares DPM FIRE SAFETY DIRECTOR: Buzz Mcdonald DPM, PGY-1. ANESTHESIOLOGIST: Román Nation MD PREOPERATIVE DIAGNOSIS: Left foot nonhealing ulceration. POSTOPERATIVE DIAGNOSIS: Left foot nonhealing ulceration. PROCEDURE: Debridement of left foot nonhealing ulceration with application of Integra Bilayer graft and application of wound VAC. INDICATION: The patient is a 68-year-old male patient with above diagnoses. The patient has exhausted all the conservative treatments at this time and now requests surgical intervention. The patient signed the consent after careful explanation of risks, benefits, complications, and alternatives for surgical procedure. No guarantees were given nor implied. NPO status was confirmed prior to taking the patient to the OR. PREPARATION: The patient was brought to the operating room and placed on the operating room table in a supine position. A time-out was performed for identification of the correct patient and procedure. After induction of sedation, administration of 10 mL of 2% lidocaine plain to the left lateral foot nonhealing ulceration in a periwound local infiltrated block fashion. The left lower extremity was prepped and draped in a normal sterile manner and the procedure began. No tourniquet was used during the procedure. DESCRIPTION OF PROCEDURE: Left foot nonhealing ulcer debridement with application of Integra Bilayer graft and wound VAC. Attention was then directed to the lateral aspect of the left forefoot with a 6 cm x 4 cm x 0.4 cm ulceration was noted. Then using a small Ardon scissor and pickup, debridement was done of all the and necrotic tissues. Then using Misonix probe on setting of 7 and irrigating solution contained gentamicin 80 mg antibiotic, the ulceration was excisionally debrided of all remaining fibrotic and nonviable tissues until fresh and healthy bleeding granular tissue appeared. Then, Integra Bilayer graft 2 x 2 inch used to cover the ulceration. The graft was secured in position using skin maykel. Dressing was then done using Adaptic. Then application of wound VAC was done. The VAC was secured in place using adhesive dressing. Then the wound was dressed using Kerlix dressing. POSTOPERATIVE CONDITION: The patient tolerated the anesthesia and the procedure well and was escorted to the recovery room with vital signs stable and neurovascular status intact to the left lower extremity. The patient will be discharged from the same day surgery and to follow up with Dr. Mary Colmenares at her office. GARO NapolesPGY1 Mary Colmenares DPM MTDD
== END 2019-01-19 16:00 | disposition home or self-care (01) ==
LOC: SDS 09:57
PROVIDERS: ATTEND Podiatrist
DX: L97.509 Non-pressure chronic ulcer of other part of unspecified foot with unspecified severity (principal); L97.529 Non-pressure chronic ulcer of other part of left foot with unspecified severity
CPT/HCPCS: 11042; 15271; 82948; 87070 ×2; 87181; 88304; J0696 ×2; J1580; J2250; J2704; J3010; J7030; J7120; Q4104